=== PATIENT | male | born 1980 | race Caucasian/White ===

== ENCOUNTER 2020-03-12 09:42 | Emergency (ER) | payer SELFPAY ==
[2020-03-12 09:47] VITALS: BP 169/110; PULSE 105; RESP 18; TEMP 36.7; O2SAT 100; BMI 20.7
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
--- NOTE | 2020-03-12 10:20 | CT_ITS ---
WS: [id number] CT FACIAL BONES TECHNIQUE: Noncontrast facial bones with coronal and sagittal reformatted images. CLINICAL INFORMATION: head injury with jaw pain and right orbital swelling COMPARISON: None. DLP: 731.[address] scans at [facility] use at least one of these dose optimization techniques: automat ed exposure control; mA and/or kV adjustment per patient size (includes targeted exams where dose is matched to clinical indication); or iterative reconstruction. FINDINGS: Subcutaneous emphysema left enforcement safety officer space and parapharyngeal space. Oblique fracture involving the body of the mandible extending into the mandibular angle and mandibular ramus. No dislocation. Right mandible is normal in appearance. Paranasal sinuses are well aerated. Normal pterygoid plates. Mild mucosal thickening in the ethmoid a ir cells. BB overlying the left maxillary sinus. Orbits appear normal. Normal zygoma. CT/CT facial bones wo con* [id number] IMPRESSION: 1. Oblique nondisplaced fracture involving the left mandible described above. No dislocation. Fracture involves the left posterior molars. 2. Subcutaneous emphysema involving the left enforcement safety officer space and parapharyng eal space. 3. No other visualized fractures.
--- NOTE | 2020-03-12 10:20 | CT_ITS ---
WS: [id number] CT HEAD TECHNIQUE: Noncontrast CT of the head obtained from the skullbase to the vertex. CLINICAL INFORMATION: head injury with LOC COMPARISON: None. DLP: 848.[address] scans at [facility] use at least one of these dose optimization techniques: automat ed exposure control; mA and/or kV adjustment per patient size (includes targeted exams where dose is matched to clinical indication); or iterative reconstruction. FINDINGS: No evidence of intracranial hemorrhage or mass effect. Ventricular system and basal cisterns are murray nt. No extra-axial fluid collections. No evidence of mass or mass effect. Normal armendariz-white different iation. Paranasal sinuses and mastoid air cells are well aerated. . Subcutaneous emphysema left arts administrator or manager sp shamar. Facial bones will be described on face CT. Soft tissue edema right temporal with focal calcifica tion or debris CT/CT head wo con* [id number] IMPRESSION: 1. No evidence of intracranial hemorrhage or mass effect. 2. Subcutaneous emphysema left arts administrator or manager space. Facial bones will be describe d on face CT.
--- NOTE | 2020-03-12 10:20 | CT_ITS ---
WS: [id number] CT CERVICAL TRAUMA TECHNIQUE: Noncontrast CT of the cervical spine with coronal and sagittal reformatted images. CLINICAL INFORMATION: head injury with LOC COMPARISON: None. DLP: 534.[address] scans at [facility] use at least one of these dose optimization techniques: automat ed exposure control; mA and/or kV adjustment per patient size (includes targeted exams where dose is matched to clinical indication); or iterative reconstruction. FINDINGS: Straightening of the normal cervical lordosis. Normal craniocervical junction. Normal C1-C2 articulat ion. Dens is normal in appearance. Normal occipital condyles. No high-grade spinal canal narrowing. N ormal C1 ring. No evidence of acute fracture or dislocation. Mild spondylitic changes. Subcutaneous emphysema left neck described on the head and face CT. Partially visualized left mandibu lar fracture. Mastoids air cells are well aerated. Notified IZA Carroll at 03/12/2020 11:[address]/CT cervical spin wo con* [id number] IMPRESSION: No evidence of acute fracture or dislocation. Normal cervical spine.
[2020-03-12] MEDS: HYDROcodone-acetaminophen 7.5-325 mg Tablet 1 TAB PO (10:27)
[2020-03-12] MEDS: tetanus-dipt-pertussis 0.5 mL SDV IM (11:26)
[2020-03-12] MEDS: clindamycin 150 mg Capsule 300 MG PO (12:33)
== END 2020-03-12 12:36 | disposition home or self-care (01) ==
PROVIDERS: Emergency Provider Physician Assistant
DX: S02.642A Fracture of ramus of left mandible, initial encounter for closed fracture (principal); Z23 Encounter for immunization; Y04.2XXA Assault by strike against or bumped into by another person, initial encounter
CPT/HCPCS: 12345; 70450; 70486; 72125; 90471; 90715; 99282; 99283

== ENCOUNTER 2020-03-13 16:03 | Emergency (ER) | payer SELFPAY ==
[2020-03-13 16:08] VITALS: BP 153/108; PULSE 125; RESP 14; TEMP 37.4; O2SAT 97; BMI 20.7
--- NOTE | 2020-03-13 16:14 | W.ED.GENADLT ---
HPI - General Adult General: Chief complaint: General Medical Stated complaint: JAW INJURY/OUT OF PAIN MEDS Time Seen by Provider: 03/13/20 16:12 History of Present Illness: HPI narrative: Patient presents here requesting more pain medicine. He is gone through to 12 tablets in the last and 24-hour. Has appointment scheduled tomorrow with ENT in [place] complaint: Pain med refill Onset (ago): day(s) Severity: moderate Quality: aching Pain Consistency: constant Associated symptoms: Deny chest pain, dyspnea, headache(s), nausea, rash or vomiting Review of Systems Const: Denies: fever(s), chills or body aches Eyes: Denies: change in vision or blurry vision ENMT: Denies: throat pain or nasal congestion Card: Denies: chest pain or dyspnea on exertion Resp: Denies: dyspnea, productive cough or non-productive cough GI: Denies: abdominal pain, nausea or vomiting : Denies: difficulty urinating Musc: Denies: extremity pain Skin/Breast: Denies: rash Neuro: Denies: headache(s) Psych: Reports: other (Patient is agitated and requesting more pain meds); Denies: anxiety or depression [place]/Lymph: Denies: easy bruising Physical Exam Narrative: EXAM NARRATIVE: Patient left before I could do a proper exam. He was agitated about the questioning that I was doing concerning his use of pain medication. Patient is talking without any difficulty does have swelling to left side of his jaw moves all extremities without problem Course Vital Signs: Vital signs: Vital Signs Temperature 99.3 F 03/13/20 16:08 Pulse Rate 125 H 03/13/20 16:08 Respiratory Rate 14 03/13/20 16:08 Blood Pressure 153/108 03/13/20 16:08 Pulse Oximetry 97 03/13/20 16:08 MDM - General Adult MDM Narrative: Medical decision making narrative: I was questioned patient about his pain medication usage and the prescription did receive from here from the ER patient become agitated. Said he is having take 2 pills at a time to even relieve the pain and that he is ran out of pain medication. Offered to give the patient more pain medication and that he would need to use those appropriately he became mad about that statement and ripped off his blood pressure cuff his armband and walked out of the room Discharge Plan Discharge Patient Disposition: Home Clinical Impression: Mandible fracture Qualifiers: Encounter type: subsequent encounter Fracture type: closed Laterality: left Condition: Stable Prescriptions: No Action ibuprofen 200 mg Tablet 800 mg PO PRN RF: 0 doxycycline hyclate 100 mg capsule 100 mg PO BID 7 Days Qty: 14 RF: 0 Discharge Orders: Discharge Order (Routine); Ordered 03/13/20 Ordered By: Adrian Graham Discharge Diet: Usual diet Discharge Activity: Limit activity as instructed Activity Restrictions/Additional Instructions: Keep appointment with ear nose throat doctor tomorrow. Can take ibuprofen or Tylenol for pain. Apply ice as needed. Coding Level of Care Code ED Long Term Care Phlebotomist for Elaina Summers
--- NOTE | 2020-03-13 16:33 | PC.NURSE ---
Went to Room 08 to assess and update vitals and pt was Gone. Was not able to assess or complete assessment.
== END 2020-03-13 16:36 | disposition home or self-care (01) ==
PROVIDERS: Emergency Provider Nurse Practitioner Family
DX: S02.609A Fracture of mandible, unspecified, initial encounter for closed fracture (principal); X58.XXXA Exposure to other specified factors, initial encounter
CPT/HCPCS: 12345; 99281

== ENCOUNTER 2020-03-13 23:48 | Emergency (ER) | payer SELFPAY ==
[2020-03-13 23:59] VITALS: BP 163/102; PULSE 111; RESP 16; TEMP 36.7; O2SAT 98; BMI 21.4
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
[2020-03-14 00:12] VITALS: BP 142/92; PULSE 110; RESP 20; O2SAT 99
[2020-03-14] MEDS: HYDROcodone-acetaminophen 10-325 mg Tablet 2 TAB PO (00:36)
[2020-03-14] MEDS: HYDROcodone-acetaminophen 10-325 mg Tablet 1 TAB PO (00:36)
== END 2020-03-14 00:37 | disposition home or self-care (01) ==
PROVIDERS: Emergency Provider Nurse Practitioner Family
DX: S02.609A Fracture of mandible, unspecified, initial encounter for closed fracture (principal); X58.XXXA Exposure to other specified factors, initial encounter
CPT/HCPCS: 12345; 99282

== ENCOUNTER 2020-05-09 00:07 | Emergency (ER) | payer SELFPAY ==
[2020-05-09 00:12] VITALS: BP 148/113; PULSE 132; RESP 18; TEMP 37.1; O2SAT 96
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
--- NOTE | 2020-05-09 01:40 | PC.NURSE ---
during initial assessment, pt refusing all care including IV meds and CT scan. Pt states he has an appt next week with his ENT surgeon in [place], and feels his care can wait until then. Dr notified. Dr states pt still refusing care and willing to leave AMA. Pt explained risk and benefits of AMA refusal risking injury leading up to permanent disability or . Pt signed AMA paperwork after verbalizing understanding
== END 2020-05-09 02:14 | disposition left against medical advice (07) ==
PROVIDERS: Emergency Provider Emergency Medicine
DX: K04.7 Periapical abscess without sinus (principal); Z53.21 Procedure and treatment not carried out due to patient leaving prior to being seen by health care provider
CPT/HCPCS: 12345; 99281

== ENCOUNTER 2020-10-26 02:13 | Emergency (ER) | payer SELFPAY ==
[2020-10-26] VITALS (8 sets, daily range): BP systolic 103–164; BP diastolic 66–101; PULSE 110–140; RESP 16–24; TEMP 37.3–38.1; O2SAT 94–98; BMI 22.6
[2020-10-26] MEDS: sodium chloride 0.9% 1,000 ML 999 ML IV (02:39)
[2020-10-26 02:55] LABS: Basophils # 0.1 10^3/uL (0.0-0.1); Basophils % 0.5 %; Eosinophils # 0.4 10^3/uL (0.0-0.8); Eosinophils % 1.5 %; Hematocrit 40.6 % (42.0-52.0); Hemoglobin 13.5 g/dL (11.7-16.6); Lymphocytes # 1.7 10^3/uL (0.8-4.8); Lymphocytes % 6.5 %; Mean Corpuscular HGB Conc 33.3 g/dL (30.0-36.0); Mean Corpuscular Hemoglobin 30.2 pg (28.0-34.0); Mean Corpuscular Volume 90.8 fL (80-94); Mean Platelet Volume 9.6 fL (7.4-10.4); Monocytes # 2.7 10^3/uL (0.2-0.9); Monocytes % 10.3 %; Neutrophils # 20.79 10^3/uL (1.8-7.7); Nucleated Red Blood Cells % 0 %; Platelet Count 301 10^3/cmm (130-400); Red Blood Count 4.47 10^6/uL (4.1-5.3); Red Cell Distribution Width 14.7 % (12.1-15.1)
--- NOTE | 2020-10-26 03:04 | CTR_ITS ---
PROCEDURE INFORMATION: Exam: CT Neck With Contrast Exam date and time: 10/26/2020 3:21 AM Age: 40 years old Clinical indication: Abscess, cutaneous; Prior surgery; Surgery date: 3-7 days post-operative; Surgery type: Left mandible hardware removed; Patient HX: Abscess formation from removal of mandibular hardware five days ago. TECHNIQUE: Imaging protocol: Computed tomography images of the neck with intravenous contrast. Radiation optimization: All CT scans at this facility use at least one of these dose optimization techniques: automated exposure control; mA and/or kV adjustment per patient size (includes targeted exams where dose is matched to clinical indication); or iterative reconstruction. Contrast material: OMNI 300; Contrast volume: 95 ml; Contrast route: INTRAVENOUS (IV); COMPARISON: CT cervical spin wo con* [id number] 03/12/2020 10:37 AM RADIATION DOSE METRICS: Total DLP (mGy-cm): 602.74 FINDINGS: Nasopharynx: Unremarkable. Oropharynx: Unremarkable. No significant tonsillar enlargement. Hypopharynx: Unremarkable. Larynx: Unremarkable. Normal epiglottis. Retropharyngeal space: Unremarkable. Submandibular/Parotid glands: Normal. Glands are normal in size. Thyroid: Normal. No enlarged or calcified nodules. Lymph nodes: There is a 1.7 cm left upper cervical chain lymph node. There is a 1.7 cm left submandibular lymph node. There is a 1.2 cm submental lymph node. Trachea: Visualized trachea is unremarkable. Lungs: Single calcified pulmonary granuloma is present, consistent with prior granulomatous disease. Bones/joints: Old right zygoma fracture. There is fracture fixation hardware in the left mandible. No bone destruction. Vasculature: There is diffuse left facial cellulitis. Soft tissues: There is a 5 x 4.3 x 6 cm left facial abscess which is extending to the skin surface. There is a rounded metallic foreign body in the soft tissues anterior to the left maxillary sinus. CT/CT neck w con* [id number] IMPRESSION: 1. There is a 5 x 4.3 x 6 cm left facial abscess which is extending to the skin surface. 2. Left facial cellulitis. 3. Mildly enlarged upper cervical, submandibular and submental lymph nodes. Radiation Dose CTDIVOL = (mGy): DLP = 602.74 (mGy-cm)
[2020-10-26 03:09] LABS: Alanine Aminotransferase 12 U/L (0-41); Albumin Level 4.1 g/dL (3.5-5.2); Alkaline Phosphatase 126 IU/L (40-130); Aspartate Amino Transferase 12 U/L (0-40); Blood Urea Nitrogen 6 mg/dL (6-20); Calcium 8.9 mg/dL (8.5-10.5); Carbon Dioxide 27 mmol/L (22-29); Chloride 98 mmol/L (98-107); Creatinine Clr Calc Pharmacy 137.8536; Globulin 3.7 g/dL (1.3-4.6); Glomerular Filtration Rate 124.3 mL/min (90-130); Glucose 150 mg/dL (65-115); Osmolality Calculated 282 mOsm/kg (285-295); Sodium 136 mmol/L (136-145); Total Bilirubin 0.8 mg/dL (0.15-1.2); Total Protein 7.8 g/dL (6.6-8.7)
[2020-10-26 03:10] LABS: Lactate (Lactic Acid level) 1.1 mmol/L (0.5-2.2)
[2020-10-26] MEDS: iohexol 300 mg/mL 100 mL Btl IV (03:22)
[2020-10-26 03:23] LABS: C Reactive Protein 350.4 mg/L (0.0-4.9)
[2020-10-26] MEDS: ondansetron 2 mg/ML SDV 2 mL 4 MG IVP (03:25)
[2020-10-26] MEDS: lidocaine 1% INJ 20 mL INJECTION (03:25)
[2020-10-26] MEDS: fentaNYL 50 mcg/mL INJ 2mL 75 MCG IVP (03:25)
--- NOTE | 2020-10-26 03:59 | ED_ITS ---
HPI - General Adult General: Chief complaint: General Medical Stated complaint: POSS INFECTION POST OP Time Seen by Provider: 10/26/20 02:27 History of Present Illness: HPI narrative: 40-year-old male who had a mandibular plate removed on the left on Wednesday, 5 days ago. He presents with left-sided facial swelling, fever, chills. He noted that he had increasing swelling over the last 2 to 3 days. He can talk to his surgeon's office yesterday, and was called in some antibiotics after they found out he could not make it to [place] in time for the office to close. He woke up with increased swelling and pain early this morning. He is handling liquids and swallowing okay, but notes that it is hard to open his mouth to eat. He is handling his own secretions. Onset (ago): day(s) Location: face and neck Radiation: non-radiation Severity: moderate Severity scale (1-10): 8 Quality: burning and aching Pain Consistency: constant Relieving factors: none Exacerbating factors: movement Associated symptoms: Reports fevers/chills, headache(s), nausea and rash; Deny chest pain, confusion, dyspnea or vomiting Treatments prior to arrival: other Review of Systems Const: Reports: fever(s), chills and change in appetite Eyes: Denies: change in vision Card: Denies: chest pain Resp: Denies: dyspnea, productive cough or non-productive cough GI: Reports: nausea; Denies: vomiting : Denies: difficulty urinating Skin/Breast: Reports: rash Neuro: Reports: headache(s); Denies: dizziness or confusion [facility] ED PFSH: Medical History (Updated 10/26/20 @ 05:38 by Geovany Castillo DO) No pertinent past medical history Surgical History (Updated 05/09/20 @ 00:22 by Jennifer Leyva) History of mandibular surgery Physical Exam Const: COMMON NORMALS: patient oriented x3 GENERAL APPEARANCE: ill appearing and diaphoretic ORIENTATION/CONSCIOUSNESS: Yes awake, Yes oriented to person, Yes oriented to place and Yes oriented to time HENMT: FACE & SINUS: edema, fluctuance and other OTHER: Left-sided facial and neck edema perimandibular. Incision appears still closed with sutures int act. It is mild to moderately cellulitic. There is no streaking. Small amount of drainage from the incision site. It appears purulent and has a somewhat pungent odor. Chest: COMMONS NORMALS: normal inspection of the chest Resp: COMMON NORMALS: normal respiratory effort, No retractions and No use of accessory muscles Cardio: COMMON NORMALS: regular rhythm RATE: tachycardic RHYTHM: regular rhythm GI: INSPECTION: Yes normal to inspection Neuro: COMMON NORMALS: patient oriented x3 SENSORIUM/ORIENTATION: Yes oriented to person, Yes oriented to place and Yes oriented to time Procedures Abscess I/D Site: neck Side (if applicable): left Sedation/analgesia: fentanyl Local Anesthetic: lidocaine 1% Amount of anesthesia used (mL): 6 Technique: incised with #11 blade Amount of fluid expressed (mL): 150 Irrigation: No Packing used?: none Course Consultations: Consultation #1: Yael Hospitalist, [facility]. Accepts in Transfer Time: 05:37 Vital Signs: Vital signs: Vital Signs Temperature 99.6 F 10/26/20 04:30 Pulse Rate 125 H 10/26/20 04:26 Respiratory Rate 21 H 10/26/20 04:26 Blood Pressure 138/93 10/26/20 04:26 Pulse Oximetry 94 10/26/20 04:26 MDM - General Adult MDM Narrative: Medical decision making narrative: 40-year-old male presents with fever and facial swelling. He has had some drainage. He notes after the drainage started, his pain improved to some degree. His white blood cell count is 26. He is tachycardic. He qualifies for sepsis. He is however hypertensive and not hypotensive, so traditional 30 mL/kilogram bolus not incorporated. He did receive some fluid. Large area of fluctuance, small incision made with copious amounts of pungent, purulent material drained. CT was acquired before I&D, and shows a large abscess with air down next to his mandible. His surgery was done at [facility], and we will attempt to get a hold of them for transfer. Lab Data: Labs: Lab Results 10/26/20 10/26/20 10/26/20 Range/Units 02:45 02:45 02:45 WBC 26.0 H (4.0-10.0) 10^3/ uL RBC 4.47 (4.1-5.3) 10^6/u L Hgb 13.5 (11.7-16.6) g/dL Hct 40.6 L (42.0-52.0) % MCV 90.8 (80-94) fL MCH 30.2 (28.0-34.0) pg MCHC 33.3 (30.0-36.0) g/dL RDW 14.7 (12.1-15.1) % Plt Count 301 (130-400) 10^3/c mm MPV 9.6 (7.4-10.4) fL Neut % (Auto) 80.0 % Lymph % (Auto) 6.5 % [place] % (Auto) 10.3 % Eos % (Auto) 1.5 % Baso % (Auto) 0.5 % Neut # (Auto) 20.79 H (1.8-7.7) 10^3/u L Lymph # (Auto) 1.7 (0.8-4.8) 10^3/u L [place] # (Auto) 2.7 H (0.2-0.9) 10^3/u L Eos # (Auto) 0.4 (0.0-0.8) 10^3/u L Baso # (Auto) 0.1 (0.0-0.1) 10^3/u L Nucleated RBC % (a uto) 0 % Nucleated RBCs # 0.0 /100WBC Sodium 136 (136-145) mmol/L Potassium 4.0 (3.5-5.1) mmol/L Chloride 98 (98-107) mmol/L Carbon Dioxide 27 (22-29) mmol/L Anion Gap 15.0 (5-19) BUN 6 (6-20) mg/dL Creatinine 0.7 (0.7-1.2) mg/dL GFR Calculation 124.3 (90-130) mL/min Glucose 150 H (65-115) mg/dL Calculated Osmolal ity 282 L (285-295) mOsm/k g Lactate 1.1 (0.5-2.2) mmol/L Calcium 8.9 (8.5-10.5) mg/dL Total Bilirubin 0.8 (0.15-1.2) mg/dL AST 12 (0-40) U/L ALT 12 (0-41) U/L Alkaline Phosphata se 126 (40-130) IU/L C-Reactive Protein 350.4 H (0.0-4.9) mg/L Total Protein 7.8 (6.6-8.7) g/dL Albumin 4.1 (3.5-5.2) g/dL Globulin 3.7 (1.3-4.6) g/dL Urine Color (Yellow) Urine Appearance (CLEAR) Urine pH (5-7) Ur Specific Gravit y (1.005-1.030) Urine Protein (Negative) Urine Glucose (UA) (Normal) Urine Ketones (Negative) Urine Blood (Negative) Urine Nitrate (Negative) Urine Bilirubin (Negative) Prot Sulfosalicyli c Acd (Negative) Urine Urobilinogen (Negative) mg/dL Ur Leukocyte Lizzette ase (Negative) 10/26/20 Range/Units 03:15 WBC (4.0-10.0) 10^3/ uL RBC (4.1-5.3) 10^6/u L Hgb (11.7-16.6) g/dL Hct (42.0-52.0) % MCV (80-94) fL MCH (28.0-34.0) pg MCHC (30.0-36.0) g/dL RDW (12.1-15.1) % Plt Count (130-400) 10^3/c mm MPV (7.4-10.4) fL Neut % (Auto) % Lymph % (Auto) % [place] % (Auto) % Eos % (Auto) % Baso % (Auto) % Neut # (Auto) (1.8-7.7) 10^3/u L Lymph # (Auto) (0.8-4.8) 10^3/u L [place] # (Auto) (0.2-0.9) 10^3/u L Eos # (Auto) (0.0-0.8) 10^3/u L Baso # (Auto) (0.0-0.1) 10^3/u L Nucleated RBC % (a uto) % Nucleated RBCs # /100WBC Sodium (136-145) mmol/L Potassium (3.5-5.1) mmol/L Chloride (98-107) mmol/L Carbon Dioxide (22-29) mmol/L Anion Gap (5-19) BUN (6-20) mg/dL Creatinine (0.7-1.2) mg/dL GFR Calculation (90-130) mL/min Glucose (65-115) mg/dL Calculated Osmolal ity (285-295) mOsm/k g Lactate (0.5-2.2) mmol/L Calcium (8.5-10.5) mg/dL Total Bilirubin (0.15-1.2) mg/dL AST (0-40) U/L ALT (0-41) U/L Alkaline Phosphata se (40-130) IU/L C-Reactive Protein (0.0-4.9) mg/L Total Protein (6.6-8.7) g/dL Albumin (3.5-5.2) g/dL Globulin (1.3-4.6) g/dL Urine Color Yellow (Yellow) Urine Appearance Clear (CLEAR) Urine pH 8 H (5-7) Ur Specific Gravit y 1.010 (1.005-1.030) Urine Protein Neg (Negative) Urine Glucose (UA) Norm (Normal) Urine Ketones Negative (Negative) Urine Blood Neg (Negative) Urine Nitrate Negative (Negative) Urine Bilirubin Neg (Negative) Prot Sulfosalicyli c Acd Negative (Negative) Urine Urobilinogen 1 H (Negative) mg/dL Ur Leukocyte Lizzette ase Negative (Negative) Discharge Plan Discharge Patient Disposition: Xfer Short-Term Hosp Clinical Impression: Abscess after procedure Sepsis Qualifiers: Sepsis type: sepsis due to unspecified organism Sepsis acute organ dysfunction status: without acute organ dysfunction Qualified Code(s): A41.9 - Sepsis, unspecified organism Coding Level of Care Code 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
[2020-10-26] MEDS: ketorolac 30 mg/mL INJ IVP (04:06)
[2020-10-26 04:14] LABS: Add Urine Microscopic? NO
[2020-10-26] MEDS: clindamycin 900 MG/50 ML PREMIX 100 MG IV (04:15)
[2020-10-26 04:24] LABS: Bilirubin Urine Neg (Negative); Blood Urine Neg (Negative); Glucose Urine UA Norm (Normal); Ketones Urine Negative (Negative); Leukocyte Esterase Urine Negative (Negative); Nitrate Urine Negative (Negative); Protein Urine Neg (Negative); Sulfosalicylic Acid Urine Negative (Negative); Urine Appearance Clear (CLEAR); Urine Color Yellow (Yellow); Urobilinogen Urine 1 mg/dL (Negative); pH Urine 8 (5-7)
[2020-10-26] MEDS: sodium chloride 0.9% 1,000 ML 100 ML IV (06:26)
[2020-10-26] MEDS: dexamethasone 4 mg/mL INJ 8 MG IVP (06:26)
--- NOTE | 2020-10-28 13:39 | PC.NURSE ---
Wound culture faxed to [facility] where the patient was transferred to after patients visit here in the ER.
== END 2020-10-26 06:55 | disposition short-term general hospital (02) ==
PROVIDERS: Emergency Provider Emergency Medicine
DX: T81.49XA Infection following a procedure, other surgical site, initial encounter (principal); L02.11 Cutaneous abscess of neck; A41.9 Sepsis, unspecified organism
CPT/HCPCS: 10060; 70491; 80053; 81003; 83605; 85025; 86140; 87040; 87070; 87075; 87186; 87205; 96365; 96375; 99285; J1100; J1885; J2405; J3010; J3490; J7030; Q9967

== ENCOUNTER 2021-02-13 03:44 | Emergency (ER) | payer SELFPAY ==
[2021-02-13 03:49] VITALS: BP 163/113; PULSE 117; RESP 17; TEMP 36.6; O2SAT 97; BMI 20.7
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
[2021-02-13 04:14] VITALS: RESP 17; O2SAT 97
[2021-02-13] MEDS: morphine 4 mg/mL SDV 1 mL IVP (04:14)
[2021-02-13] MEDS: ondansetron 2 mg/ML SDV 2 mL 4 MG IVP ×2 (04:14→05:06)
[2021-02-13 04:17] LABS: Basophils # 0.1 10^3/uL (0.0-0.1); Basophils % 0.3 %; Hemoglobin 13.6 g/dL (11.7-16.6); Lymphocytes # 0.8 10^3/uL (0.8-4.8); Lymphocytes % 4.1 %; Mean Corpuscular HGB Conc 32.4 g/dL (30.0-36.0); Mean Corpuscular Hemoglobin 29.3 pg (28.0-34.0); Mean Corpuscular Volume 90.5 fL (80-94); Mean Platelet Volume 9.4 fL (7.4-10.4); Monocytes # 1.1 10^3/uL (0.2-0.9); Monocytes % 5.6 %; Neutrophils # 17.37 10^3/uL (1.8-7.7); Neutrophils % 89.3 %; Nucleated Red Blood Cells % 0 %; Platelet Count 255 10^3/cmm (130-400); Red Blood Count 4.64 10^6/uL (4.1-5.3); Red Cell Distribution Width 14.4 % (12.1-15.1); White Blood Count 19.4 10^3/uL (4.0-10.0)
[2021-02-13 04:25] VITALS: PULSE 123; O2SAT 97
[2021-02-13] MEDS: iohexol 300 mg/mL 100 mL Btl IV (04:26)
[2021-02-13 04:33] LABS: Alanine Aminotransferase 37 U/L (0-41); Albumin Level 4.6 g/dL (3.5-5.2); Alkaline Phosphatase 127 IU/L (40-130); Anion Gap 17.5 (5-19); Aspartate Amino Transferase 59 U/L (0-40); Blood Urea Nitrogen 12 mg/dL (6-20); Carbon Dioxide 23 mmol/L (22-29); Chloride 99 mmol/L (98-107); Globulin 2.6 g/dL (1.3-4.6); Glomerular Filtration Rate 73.8 mL/min (90-130); Glucose 190 mg/dL (65-115); Osmolality Calculated 287 mOsm/kg (285-295); Potassium 3.5 mmol/L (3.5-5.1); Sodium 136 mmol/L (136-145); Total Protein 7.2 g/dL (6.6-8.7)
[2021-02-13 04:40] LABS: Alcohol Level < 10 mg/dL (0-10)
--- NOTE | 2021-02-13 04:45 | PC.NURSE ---
patient refused to wear C-Collar upon arrival to ER due to pain. After CT was viewed by Dr. Griffin, patient was advised of results and staff insisted on patient wearing c-collar. Patient reluctant but agreeable to wear c-collar. C-collar was placed
[2021-02-13 05:00] VITALS: BP 162/110; PULSE 124; RESP 17; O2SAT 97
[2021-02-13 05:12] VITALS: RESP 18; O2SAT 100
[2021-02-13] MEDS: HYDROmorphone 1 mg/mL INJ 1 mL IVP (05:12)
[2021-02-13 05:13] VITALS: BP 162/110; PULSE 124; RESP 17; TEMP 36.6; O2SAT 97
[2021-02-13 05:14] LABS: Amphetamines Screen Urine Positive (Negative); Barbiturates Screen Urine Negative (Negative); Benzodiazepines Screen Urine Negative (Negative); Cocaine Screen Urine Negative (Negative); Opiate Screen Urine Positive (Negative); PCP Screen Urine Negative (Negative); THC Screen Urine Positive (Negative)
[2021-02-13] MEDS: LORazepam 2 mg/mL INJ 1 mL 1 MG IVP (05:15)
== END 2021-02-13 05:42 | disposition short-term general hospital (02) ==
PROVIDERS: Emergency Provider Emergency Medicine
DX: S32.022A Unstable burst fracture of second lumbar vertebra, initial encounter for closed fracture (principal); S12.601A Unspecified nondisplaced fracture of seventh cervical vertebra, initial encounter for closed fracture; W14.XXXA Fall from tree, initial encounter
CPT/HCPCS: 51702; 70450; 71260; 72125; 74177; 80053; 80306; 80307; 85025; 96374; 96375; 96376; 99285; J1170; J2060; J2270; J2405; Q9967

== ENCOUNTER 2021-09-03 09:17 | Emergency (ER) | payer SELFPAY ==
[2021-09-03 09:23] VITALS: BP 157/112; PULSE 122; RESP 19; TEMP 36.5; O2SAT 98; BMI 21.4
--- NOTE | 2021-09-03 09:34 | ED_ITS ---
HPI - General Adult General: Chief complaint: General Medical Stated complaint: SOMETHING IN HIS NOSE Time Seen by Provider: 09/03/21 09:20 Source: patient Mode of arrival: ambulatory Limitations: no limitations History of Present Illness: Patient is a 41-year-old male who presents to ED today for evaluation of a possible nasal foreign body (patient thinks specifically a bug). He states he woke up this morning and felt normal but states later that morning he began sneezing and having a runny nose which was abnormal for patient. He thought he could feel something in his left nare and felt like it could be a bug. Patient states upon arrival to the ED his symptoms have pretty much resolved but still has some minor rhinorrhea. He is not having any difficulty breathing. No nosebleed. No throat swelling or trouble swallowing. Onset (ago): hour(s) Location: face (nose) Severity: mild Pain Consistency: now resolved Associated symptoms: Reports no associated symptoms; Deny chest pain, dyspnea, headache(s), malaise, nausea or vomiting Treatments prior to arrival: none Review of Systems Const: Denies: fever(s), chills, body aches, fatigue or malaise Eyes: Denies: change in vision, blurry vision, photophobia, floaters or seeing flashes ENMT: Reports: nasal discharge and post nasal drip; Denies: throat pain, odynophagia, ear or mastoid pain, nasal congestion, nasal obstruction, epistaxis or sinus pain Card: Denies: chest pain Resp: Denies: dyspnea GI: Denies: abdominal pain, nausea or vomiting Musc: Denies: neck pain Neuro: Denies: headache(s) or dizziness [facility] ED PFSH: Medical History No pertinent past medical history Surgical History History of mandibular surgery Social History Smoking and tobacco status: current every day smoker Physical Exam Const: COMMON NORMALS: no acute distress, patient oriented x3, no limitations and alert HENMT: COMMON NORMALS: normocephalic, atraumatic, hearing grossly normal bilaterally, external ears normal, EAC's normal, TM's normal bilaterally, Normal external nose present, Normal nasal mucous membranes and turbinates present, moist oral mucous membranes, oropharynx normal and gingiva normal HEAD & SCALP: normal to inspection, normocephalic and atraumatic FACE & SINUS: normal facial exam NOSE: Normal external nose present, Normal nares present, Normal nasal mucous membranes and turbinates present, Normal septum present and Other nasal findings present (mild clear rhinorrhea) EXTERNAL EAR: Yes external ears normal EXTERNAL AUDITORY CANAL: EAC's normal TYMPANIC MEMBRANE: TM's normal bilaterally MOUTH: Normal oral and palatal mucosa present, lip normal and tongue normal TEETH & GINGIVA: Yes poor dentition THROAT: posterior oropharynx normal, tonsils normal and uvula midline Eye: GENERAL EYE: appearance normal, both eyes and all related structures Neck/C-Spine: COMMON NORMALS: full ROM and no lymphadenopathy GENERAL: No anterior neck swelling, No lymphadenopathy and No submandibular swelling Neuro: COMMON NORMALS: patient oriented x3 SENSORIUM/ORIENTATION: Yes alert Course Vital Signs: Vital signs: Vital Signs Temperature 97.7 F 09/03/21 09:23 Pulse Rate 115 H 09/03/21 09:46 Respiratory Rate 20 H 09/03/21 09:46 Blood Pressure 155/102 09/03/21 09:46 Pulse Oximetry 98 09/03/21 09:46 [facility] - General Adult Medical Decision Making Patient states symptoms are gone apart from some mild clear rhinorrhea. Unlikely patient would wake up from sleep normal and then have a bug crawl/fly into his nose when he is up/alert/active without him knowing so. I don't see anything abnormal regarding his nares or posterior oropharynx. Recommend he continue to monitor symptoms. If discomfort returns or if he begins to have increased odorous nasal secretions then he was recommended to return here or follow up with PCP for possible referral to ENT. Discharge Plan Discharge Patient Disposition: Home Clinical Impression: Normal exam Condition: Stable Prescriptions: No Action hydrocodone-acetaminophen 5-325 mg tablet 1 tab PO Q6H PRN0RF gabapentin 100 mg capsule 100 mg PO BID 0RF muscle relaxer PO 0RF Discharge Orders: Discharge ED (Routine); Ordered 09/03/21 Ordered By: Silvia Seaman Coding Level of Care Code ED Fine Arts Teacher for Chg Kristopher
[2021-09-03 09:39] VITALS: BP 155/102; PULSE 115; RESP 20; O2SAT 98
[2021-09-03 09:46] VITALS: BP 155/102; PULSE 115; RESP 20; O2SAT 98
== END 2021-09-03 09:50 | disposition home or self-care (01) ==
PROVIDERS: Emergency Provider Physician Assistant
DX: Z03.89 Encounter for observation for other suspected diseases and conditions ruled out (principal); F17.210 Nicotine dependence, cigarettes, uncomplicated; X58.XXXA Exposure to other specified factors, initial encounter
CPT/HCPCS: 99282

== ENCOUNTER 2021-12-17 05:07 | Emergency (ER) | payer SELFPAY ==
[2021-12-17 05:14] VITALS: BP 156/104; PULSE 113; RESP 16; TEMP 36.9; O2SAT 98; BMI 22.1
[2021-12-17 05:17] VITALS: BP 153/111; PULSE 100; RESP 18; O2SAT 99
--- NOTE | 2021-12-17 05:21 | W.ED.ANXIETY ---
Documented by User: Sharad Stephens MD 12/23/21 03:34 HPI - Anxiety General: Chief Complaint: Anxiety Stated Complaint: Psychiatric Symptons Time Seen by Provider: 12/17/21 05:20 History of Present Illness: Mr Frederick is a 41-year-old gentleman without significant chronic medical history presents to the emergency department due to concern of anxiety and missing time. He reports for the past few months he has had episodes where he no longer remembers certain events or times. At longest these last few hours. He endorses sometimes this is when he is outside in the heat though some other times it just occurs randomly. He does not have his history of seizures and others do not seem to notice anything different about and when these happen. He does note increased stressors lately regarding work and living situation. He does endorse tobacco use and occasional marijuana use. Additionally he endorses amphetamine use. He sometimes feels paranoid and prior to coming to the emergency department paced outside for a while being unsure if it was safe. He denies suicidal or homicidal ideation. No history of hospitalizations for psychiatric concerns. Otherwise denies new medical concerns. No other specific changes in health, exacerbating, or alleviating factors identified. Severity: moderate Quality: intermittent Provoking factors: emotional stress and work/job stress Review of Systems General: Reports: 10 or more systems reviewed and unremarkable except in HPI and below PFSH ED PFSH: Medical History No pertinent past medical history Surgical History History of mandibular surgery Social History Smoking and tobacco status: current every day smoker Physical Exam Const: COMMON NORMALS: alert GENERAL APPEARANCE: cooperative and well developed HENMT: COMMON NORMALS: normocephalic and atraumatic HEAD & SCALP: normocephalic and atraumatic Eye: COMMON NORMALS: conjunctivae normal CONJUNCTIVA: Yes conjunctivae normal SCLERA: sclerae normal Neck/C-Spine: COMMON NORMALS: supple GENERAL: Yes trachea midline Resp: COMMON NORMALS: clear to auscultation bilaterally EFFORT & INSPECTION: Yes able to speak in complete sentences AUSCULTATION: clear to auscultation bilaterally Cardio: COMMON NORMALS: regular rate and regular rhythm RATE: regular rate RHYTHM: regular rhythm GI: COMMON NORMALS: Soft to palpation PALPATION: Yes Soft to palpation and No Tenderness to palpation present (GI) PERCUSSION: normal to percussion Extremity: GENERAL: Yes normal exam except as noted and No edema Neuro: COMMON NORMALS: moves all extremities SENSORIUM/ORIENTATION: Yes alert and No Orientation impaired Psych: COMMON NORMALS: mental status grossly normal and Normal thought process present THOUGHT PROCESS: Normal thought process present Course Vital Signs: Vital signs: Vital Signs Temperature 98.5 F 12/17/21 05:14 Pulse Rate 99 12/17/21 07:45 Respiratory Rate 16 12/17/21 07:45 Blood Pressure 144/95 12/17/21 07:45 Pulse Oximetry 96 12/17/21 07:45 MDM - Anxiety Medical Decision Making 41-year-old gentleman with psychiatric history presenting to the emergency department for concern over missing time. Handoff to morning physician Dr. Dong pending completion of ED evaluation and reassessment of patient condition. Care assumed at change of shift. Patient much less anxious than as described by Dr. Stephens. We will go ahead and discharge the patient home started on BuSpar 7.5 twice daily follow-up with [facility]. Also give hydroxyzine to use as needed Lab Data : 12/17/21 05:50 12/17/21 05:50 Laboratory Results WBC 7.3 10^3/uL (4.0-10.0) 12/17/21 05:50 RBC 5.66 10^6/uL (4.1-5.3) H 12/17/21 05:50 Hgb 17.0 g/dL (11.7-16.6) H 12/17/21 05:50 Hct 51.1 % (42.0-52.0) 12/17/21 05:50 MCV 90.3 fl (80-94) 12/17/21 05:50 MCH 30.0 pg (28.0-34.0) 12/17/21 05:50 MCHC 33.3 g/dL (30.0-36.0) 12/17/21 05:50 RDW 14.4 % (12.1-15.1) 12/17/21 05:50 Plt Count 354 10^3/cmm (130-400) 12/17/21 05:50 MPV 9.3 fL (7.4-10.4) 12/17/21 05:50 Neut % (Auto) 50.6 % 12/17/21 05:50 Lymph % (Auto) 29.4 % 12/17/21 05:50 Sharp % (Auto) 11.5 % 12/17/21 05:50 Eos % (Auto) 7.4 % 12/17/21 05:50 Baso % (Auto) 0.8 % 12/17/21 05:50 Neut # (Auto) 3.70 10^3/uL (1.8-7.7) 12/17/21 05:50 Lymph # (Auto) 2.2 10^3/uL (0.8-4.8) 12/17/21 05:50 Sharp # (Auto) 0.8 10^3/uL (0.2-0.9) 12/17/21 05:50 Eos # (Auto) 0.5 10^3/uL (0.0-0.8) 12/17/21 05:50 Baso # (Auto) 0.1 10^3/uL (0.0-0.1) 12/17/21 05:50 Nucleated RBC % (auto) 0 % 12/17/21 05:50 Nucleated RBCs # 0.0 /100WBC 12/17/21 05:50 Sodium 139 mmol/L (136-145) 12/17/21 05:50 Potassium 3.6 mmol/L (3.5-5.1) 12/17/21 05:50 Chloride 99 mmol/L (98-107) 12/17/21 05:50 Carbon Dioxide 26 mmol/L (22-29) 12/17/21 05:50 Anion Gap 17.6 (5-19) 12/17/21 05:50 BUN 11 mg/dL (6-20) 12/17/21 05:50 Creatinine 0.8 mg/dL (0.7-1.2) 12/17/21 05:50 GFR Calculation 106.0 mL/min (90-130) 12/17/21 05:50 Glucose 103 mg/dL (65-115) 12/17/21 05:50 Calculated Osmolality 288 mOsm/kg (285-295) 12/17/21 05:50 Calcium 9.4 mg/dL (8.5-10.5) 12/17/21 05:50 Creatine Kinase 87 U/L (39-308) 12/17/21 05:50 Discharge Plan Discharge Patient Disposition: Home Clinical Impression: Acute anxiety Condition: Stable Prescriptions: New buspirone 15 mg tablet 7.5 mg PO BID Qty: 30 0RF hydroxyzine HCl 25 mg tablet 25 mg PO Q6H PRN (Reason: anxiety) Qty: 10 0RF No Action hydrocodone-acetaminophen 5-325 mg tablet 1 tab PO Q6H PRN0RF gabapentin 100 mg capsule 100 mg PO BID 0RF muscle relaxer PO 0RF Discharge Orders: Discharge ED (Routine); Ordered 12/17/21 Ordered By: Marty Dong Discharge Diet: Usual diet Discharge Activity: Resume usual activity Patient Instructions: Opioid Safety Activity Restrictions/Additional Instructions: Follow-up with [facility] for long-term management of your anxiety issues. Sign Out Sign Out Data: Patient Sign Out occurred on 12/17/21 at 06:56. Patient's care was discussed, and care was transferred from to Marty Dong DO. Coding Level of Care Code ED Certified Nuclear Medicine Technologist for Chg Fwd Documented by User: Marty Dong DO 12/17/21 07:51 HPI - Anxiety General: Chief Complaint: Anxiety Stated Complaint: Psychiatric Symptons Time Seen by Provider: 12/17/21 05:20 REPLACED BY [facility] ED PFSH: Medical History No pertinent past medical history Surgical History History of mandibular surgery Social History Smoking and tobacco status: current every day smoker Course Vital Signs: Vital signs: Vital Signs Temperature 98.5 F 12/17/21 05:14 Pulse Rate 99 12/17/21 07:45 Respiratory Rate 16 12/17/21 07:45 Blood Pressure 144/95 12/17/21 07:45 Pulse Oximetry 96 12/17/21 07:45 MDM - Anxiety Medical Decision Making Care assumed at change of shift. Patient much less anxious than as described by Dr. Stephens. We will go ahead and discharge the patient home started on BuSpar 7.5 twice daily follow-up with [facility]. Also give hydroxyzine to use as needed Medical Records I reviewed the patient's medical records. Lab Data I reviewed the patient's lab results. : 12/17/21 05:50 12/17/21 05:50 Laboratory Results WBC 7.3 10^3/uL (4.0-10.0) 12/17/21 05:50 RBC 5.66 10^6/uL (4.1-5.3) H 12/17/21 05:50 Hgb 17.0 g/dL (11.7-16.6) H 12/17/21 05:50 Hct 51.1 % (42.0-52.0) 12/17/21 05:50 MCV 90.3 fl (80-94) 12/17/21 05:50 MCH 30.0 pg (28.0-34.0) 12/17/21 05:50 MCHC 33.3 g/dL (30.0-36.0) 12/17/21 05:50 RDW 14.4 % (12.1-15.1) 12/17/21 05:50 Plt Count 354 10^3/cmm (130-400) 12/17/21 05:50 MPV 9.3 fL (7.4-10.4) 12/17/21 05:50 Neut % (Auto) 50.6 % 12/17/21 05:50 Lymph % (Auto) 29.4 % 12/17/21 05:50 Sharp % (Auto) 11.5 % 12/17/21 05:50 Eos % (Auto) 7.4 % 12/17/21 05:50 Baso % (Auto) 0.8 % 12/17/21 05:50 Neut # (Auto) 3.70 10^3/uL (1.8-7.7) 12/17/21 05:50 Lymph # (Auto) 2.2 10^3/uL (0.8-4.8) 12/17/21 05:50 Sharp # (Auto) 0.8 10^3/uL (0.2-0.9) 12/17/21 05:50 Eos # (Auto) 0.5 10^3/uL (0.0-0.8) 12/17/21 05:50 Baso # (Auto) 0.1 10^3/uL (0.0-0.1) 12/17/21 05:50 Nucleated RBC % (auto) 0 % 12/17/21 05:50 Nucleated RBCs # 0.0 /100WBC 12/17/21 05:50 Sodium 139 mmol/L (136-145) 12/17/21 05:50 Potassium 3.6 mmol/L (3.5-5.1) 12/17/21 05:50 Chloride 99 mmol/L (98-107) 12/17/21 05:50 Carbon Dioxide 26 mmol/L (22-29) 12/17/21 05:50 Anion Gap 17.6 (5-19) 12/17/21 05:50 BUN 11 mg/dL (6-20) 12/17/21 05:50 Creatinine 0.8 mg/dL (0.7-1.2) 12/17/21 05:50 GFR Calculation 106.0 mL/min (90-130) 12/17/21 05:50 Glucose 103 mg/dL (65-115) 12/17/21 05:50 Calculated Osmolality 288 mOsm/kg (285-295) 12/17/21 05:50 Calcium 9.4 mg/dL (8.5-10.5) 12/17/21 05:50 Creatine Kinase 87 U/L (39-308) 12/17/21 05:50 Discharge Plan Discharge Patient Disposition: Home Clinical Impression: Acute anxiety Condition: Stable Prescriptions: New buspirone 15 mg tablet 7.5 mg PO BID Qty: 30 0RF hydroxyzine HCl 25 mg tablet 25 mg PO Q6H PRN (Reason: anxiety) Qty: 10 0RF No Action hydrocodone-acetaminophen 5-325 mg tablet 1 tab PO Q6H PRN0RF gabapentin 100 mg capsule 100 mg PO BID 0RF muscle relaxer PO 0RF Discharge Orders: Discharge ED (Routine); Ordered 12/17/21 Ordered By: Marty Dong Discharge Diet: Usual diet Discharge Activity: Resume usual activity Patient Instructions: Opioid Safety Activity Restrictions/Additional Instructions: Follow-up with [facility] for long-term management of your anxiety issues. Sign Out Sign Out Data: Patient Sign Out occurred on 12/17/21 at 06:56. Patient's care was discussed, and care was transferred from to Marty Dong DO. Coding Level of Care Code ED Certified Nuclear Medicine Technologist for Elaina Summers
--- NOTE | 2021-12-17 05:37 | ECG_ITS ---
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 Measurements Intervals [place] Rate: 106 P: 74 LA: 158 QRS: 73 QRSD: 94 T: 54 QT: 337 QTc: 449 Interpretive Statements SINUS TACHYCARDIA ABNORMAL RHYTHM ECG No previous ECG available for comparison Electronically Signed On 12-17-2021 20:29:42 CDT by Eliana Enrique M.D. [email or web address]
[2021-12-17] MEDS: sodium chloride 0.9% 1,000 ML 999 ML IV (05:52)
[2021-12-17 06:13] LABS: Basophils # 0.1 10^3/uL (0.0-0.1); Basophils % 0.8 %; Eosinophils # 0.5 10^3/uL (0.0-0.8); Eosinophils % 7.4 %; Hematocrit 51.1 % (42.0-52.0); Lymphocytes # 2.2 10^3/uL (0.8-4.8); Lymphocytes % 29.4 %; Mean Corpuscular HGB Conc 33.3 g/dL (30.0-36.0); Mean Corpuscular Volume 90.3 fl (80-94); Mean Platelet Volume 9.3 fL (7.4-10.4); Monocytes # 0.8 10^3/uL (0.2-0.9); Monocytes % 11.5 %; Neutrophils % 50.6 %; Nucleated Red Blood Cells % 0 %; Platelet Count 354 10^3/cmm (130-400); Red Blood Count 5.66 10^6/uL (4.1-5.3); Red Cell Distribution Width 14.4 % (12.1-15.1); White Blood Count 7.3 10^3/uL (4.0-10.0)
[2021-12-17 06:31] VITALS: BP 144/102; PULSE 92; RESP 16; O2SAT 100
[2021-12-17 06:37] LABS: Anion Gap 17.6 (5-19); Blood Urea Nitrogen 11 mg/dL (6-20); Calcium 9.4 mg/dL (8.5-10.5); Carbon Dioxide 26 mmol/L (22-29); Chloride 99 mmol/L (98-107); Creatine Phosphokinase 87 U/L (39-308); Creatinine Clr Calc Pharmacy 118.4772; Glucose 103 mg/dL (65-115); Osmolality Calculated 288 mOsm/kg (285-295); Potassium 3.6 mmol/L (3.5-5.1); Sodium 139 mmol/L (136-145)
[2021-12-17 07:06] VITALS: BP 124/94; PULSE 87; RESP 18; O2SAT 99
--- NOTE | 2021-12-17 07:13 | PC.NURSE ---
Patient notified of the need to get urine sample. Patient verbalized understanding.
[2021-12-17 07:45] VITALS: BP 144/95; PULSE 99; RESP 16; O2SAT 96
== END 2021-12-17 07:47 | disposition home or self-care (01) ==
PROVIDERS: Emergency Medicine; Emergency Provider Family Medicine
DX: F41.9 Anxiety disorder, unspecified (principal); F17.200 Nicotine dependence, unspecified, uncomplicated
CPT/HCPCS: 80048; 82550; 85025; 93005; 96360; 99283; J7030

== ENCOUNTER 2021-12-25 02:44 | Inpatient (IN) | payer SELFPAY ==
[2021-12-25] VITALS (7 sets, daily range): BP systolic 108–150; BP diastolic 66–105; PULSE 66–105; RESP 16–20; TEMP 36.2–36.8; O2SAT 94–98; BMI 20.7
--- NOTE | 2021-12-25 02:57 | ED.C_ITS ---
HPI - Psych General: Chief Complaint: Psychiatric Symptoms Stated Complaint: depressed Time Seen by Provider: 12/25/21 02:45 Source: patient Mode of arrival: ambulatory Limitations: no limitations History of Present Illness: 41-year-old male history of depression and homelessness he states that he is just been increasing depressed and does not want to do. He denies any suicidal plan but states that he just feels like he no longer wants to live anymore. He voluntarily wants to be admitted to the [facility] to get help. Denies any other previous admissions he is not on any current medicines. Associated symptoms: Reports depression Review of Systems Const: Denies: fever(s), chills, body aches or change in appetite Eyes: Denies: blurry vision or eye discomfort ENMT: Denies: throat pain or dental pain Card: Denies: chest pain Resp: Denies: dyspnea GI: Denies: abdominal pain, nausea, vomiting or diarrhea : Denies: dysuria Musc: Denies: neck pain or back pain Skin/Breast: Denies: rash Neuro: Denies: headache(s) Psych: Reports: depression [place]/Lymph: Denies: easy bruising All/Imm: Denies: urticaria PFSH ED PFSH: Medical History No pertinent past medical history Surgical History History of mandibular surgery Social History Smoking and tobacco status: current every day smoker Physical Exam Const: COMMON NORMALS: patient oriented x3 HENMT: COMMON NORMALS: normocephalic and atraumatic HEAD & SCALP: normocephalic and atraumatic Eye: COMMON NORMALS: Equal, round and reactive pupils present and EOMs intact bilaterally PUPIL: Yes Equal, round and reactive pupils present Neck/C-Spine: COMMON NORMALS: full ROM and supple Chest: COMMONS NORMALS: normal inspection of the chest and normal palpation of entire chest wall Resp: COMMON NORMALS: normal respiratory effort, No retractions, No use of accessory muscles and clear to auscultation bilaterally AUSCULTATION: clear to auscultation bilaterally Cardio: COMMON NORMALS: regular rate, regular rhythm and No murmurs present (Cardio) RATE: regular rate RHYTHM: regular rhythm GI: COMMON NORMALS: Normal to inspection, nondistended, normoactive bowel sounds present, Soft to palpation, non-tender and no masses PALPATION: Yes Soft to palpation Extremity: COMMON NORMALS: normal to inspection and full ROM Neuro: COMMON NORMALS: patient oriented x3, moves all extremities and no focal motor deficits Psych: COMMON NORMALS: mental status grossly normal, Normal thought process present and cooperative MOOD & AFFECT: Yes depressed mood THOUGHT PROCESS: Normal thought process present Skin: COMMON NORMALS: no rashes or lesions noted and no wounds GENERAL SKIN EXAM: no rashes or lesions noted Course Vital Signs: Vital signs: Vital Signs Temperature 97.5 F L 12/25/21 02:52 Pulse Rate 91 12/25/21 03:03 Respiratory Rate 16 12/25/21 03:03 Blood Pressure 117/83 12/25/21 03:03 Pulse Oximetry 97 12/25/21 03:03 MDM - Psych Medical Decision Making Patient presents here with depression patient's voluntarily wanting admitted I spoke to psychiatrist patient is medically cleared will admit the [facility]. Lab Data : 12/25/21 03:16 12/25/21 03:16 Laboratory Results WBC 8.4 10^3/uL (4.0-10.0) 12/25/21 03:16 RBC 5.01 10^6/uL (4.1-5.3) 12/25/21 03:16 Hgb 15.3 g/dL (11.7-16.6) 12/25/21 03:16 Hct 45.8 % (42.0-52.0) 12/25/21 03:16 MCV 91.4 fl (80-94) 12/25/21 03:16 MCH 30.5 pg (28.0-34.0) 12/25/21 03:16 MCHC 33.4 g/dL (30.0-36.0) 12/25/21 03:16 RDW 14.2 % (12.1-15.1) 12/25/21 03:16 Plt Count 300 10^3/cmm (130-400) 12/25/21 03:16 MPV 9.3 fL (7.4-10.4) 12/25/21 03:16 Neut % (Auto) 55.3 % 12/25/21 03:16 Lymph % (Auto) 28.4 % 12/25/21 03:16 [place] % (Auto) 8.6 % 12/25/21 03:16 Eos % (Auto) 6.8 % 12/25/21 03:16 Baso % (Auto) 0.7 % 12/25/21 03:16 Neut # (Auto) 4.61 10^3/uL (1.8-7.7) 12/25/21 03:16 Lymph # (Auto) 2.4 10^3/uL (0.8-4.8) 12/25/21 03:16 [place] # (Auto) 0.7 10^3/uL (0.2-0.9) 12/25/21 03:16 Eos # (Auto) 0.6 10^3/uL (0.0-0.8) 12/25/21 03:16 Baso # (Auto) 0.1 10^3/uL (0.0-0.1) 12/25/21 03:16 Nucleated RBC % (auto) 0 % 12/25/21 03:16 Nucleated RBCs # 0.0 /100WBC 12/25/21 03:16 Sodium 140 mmol/L (136-145) 12/25/21 03:16 Potassium 4.1 mmol/L (3.5-5.1) 12/25/21 03:16 Chloride 98 mmol/L (98-107) 12/25/21 03:16 Carbon Dioxide 32 mmol/L (22-29) H 12/25/21 03:16 Anion Gap 14.1 (5-19) 12/25/21 03:16 BUN 14 mg/dL (6-20) 12/25/21 03:16 Creatinine 0.8 mg/dL (0.7-1.2) 12/25/21 03:16 GFR Calculation 106.0 mL/min (90-130) 12/25/21 03:16 Glucose 105 mg/dL (65-115) 12/25/21 03:16 Calculated Osmolality 291 mOsm/kg (285-295) 12/25/21 03:16 Calcium 9.7 mg/dL (8.5-10.5) 12/25/21 03:16 Total Bilirubin 0.3 mg/dL (0.15-1.2) 12/25/21 03:16 AST 24 U/L (0-40) 12/25/21 03:16 ALT 14 U/L (0-41) 12/25/21 03:16 Alkaline Phosphatase 116 IU/L (40-130) 12/25/21 03:16 Total Protein 7.5 g/dL (6.6-8.7) 12/25/21 03:16 Albumin 4.7 g/dL (3.5-5.2) 12/25/21 03:16 Globulin 2.8 g/dL (1.3-4.6) 12/25/21 03:16 Salicylates < 0.3 mg/dL (3-10) L 12/25/21 03:16 Acetaminophen < 5.0 ug/mL (10-30) L 12/25/21 03:16 Ethyl Alcohol < 10 mg/dL (0-10) 12/25/21 03:16 Discharge Plan Discharge Patient Disposition: Admitted As Inpatient Clinical Impression: Depression Condition: Stable Coding Level of Care Code ED Inside Sales Account Executive for Elaina Fwd Exam Comprehensive
[2021-12-25 03:25] LABS: Basophils # 0.1 10^3/uL (0.0-0.1); Basophils % 0.7 %; Eosinophils # 0.6 10^3/uL (0.0-0.8); Eosinophils % 6.8 %; Hematocrit 45.8 % (42.0-52.0); Hemoglobin 15.3 g/dL (11.7-16.6); Lymphocytes # 2.4 10^3/uL (0.8-4.8); Lymphocytes % 28.4 %; Mean Corpuscular HGB Conc 33.4 g/dL (30.0-36.0); Mean Corpuscular Hemoglobin 30.5 pg (28.0-34.0); Mean Corpuscular Volume 91.4 fl (80-94); Mean Platelet Volume 9.3 fL (7.4-10.4); Monocytes # 0.7 10^3/uL (0.2-0.9); Monocytes % 8.6 %; Neutrophils # 4.61 10^3/uL (1.8-7.7); Neutrophils % 55.3 %; Nucleated Red Blood Cells % 0 %; Platelet Count 300 10^3/cmm (130-400); Red Blood Count 5.01 10^6/uL (4.1-5.3); Red Cell Distribution Width 14.2 % (12.1-15.1); White Blood Count 8.4 10^3/uL (4.0-10.0)
[2021-12-25 03:41] LABS: Alanine Aminotransferase 14 U/L (0-41); Albumin Level 4.7 g/dL (3.5-5.2); Alkaline Phosphatase 116 IU/L (40-130); Anion Gap 14.1 (5-19); Aspartate Amino Transferase 24 U/L (0-40); Blood Urea Nitrogen 14 mg/dL (6-20); Calcium 9.7 mg/dL (8.5-10.5); Carbon Dioxide 32 mmol/L (22-29); Chloride 98 mmol/L (98-107); Globulin 2.8 g/dL (1.3-4.6); Glucose 105 mg/dL (65-115); Osmolality Calculated 291 mOsm/kg (285-295); Potassium 4.1 mmol/L (3.5-5.1); Sodium 140 mmol/L (136-145); Total Bilirubin 0.3 mg/dL (0.15-1.2); Total Protein 7.5 g/dL (6.6-8.7)
[2021-12-25 04:04] LABS: Acetaminophen < 5.0 ug/mL (10-30); Alcohol Level < 10 mg/dL (0-10); Salicylate < 0.3 mg/dL (3-10)
--- NOTE | 2021-12-25 11:10 | W.PM.NPUH&PS ---
Providers/Chief Complaint Admitting Physician: Mike Dumas MD Chief Complaint: depressed HPI NPU History of Present Illness Chandler Frederick is a 41 year old male Chief Complaint: Psychiatric Symptoms Stated Complaint: depressed Time Seen by Provider: 12/25/21 02:45 Source: patient Mode of arrival: ambulatory Limitations: no limitations History of Present Illness: 41-year-old male history of depression and homelessness he states that he is just been increasing depressed and does not want to do. He denies any suicidal plan but states that he just feels like he no longer wants to live anymore. He voluntarily wants to be admitted to the [facility] to get help. Denies any other previous admissions he is not on any current medicines. Associated symptoms: Reports depression He was admitted to the neuropsychiatric unit for definitive treatment of those issues. He presents today reporting that he may have been in a psychiatric facility as a child but denies any times as an adult. He reports that he has not had outpatient services and that he has not been on psychiatric medications except maybe when he was a kid. He was very resistant to the interview and was upset at varying degrees throughout the interview, mostly expressing being upset about being asked the same question by different people. He did report smoking about a pack of cigarettes a day. He reports drinking alcohol sometimes. He reports using marijuana as well as methamphetamines. He reports he has never been to rehab but has had DUI?s/drug and alcohol related charges. He reports that symptoms started back when he was a kid, he says ?I don?t know, maybe 9 to 10 years old?. When asked what exactly was going on, he said he was just a mean little kid. Many questions were then answered with ?I don?t know? frequently. He dd report that he has had suicidal thoughts in his life intermittently. He denies ever having a suicide attempt. He denies self-injurious behavior. He reports that he does have depression at times and that he was feeling depressed last night, felt tired. 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 He denies significant anxiety, denied issues related to psychosis, denying paranoia or hearing voices. He denied symptoms consistent with trauma, denying nightmares, flashbacks, hypervigilance, etc. and denied that he was interested in any medications or major interventions. PSYCHIATRIC HISTORY: As above. SUBSTANCE ABUSE HISTORY: As above. FAMILY HISTORY: He denies any family history of mental health or addiction issues, however we were fairly competent that we have evidence to the contrary based on family members and hospitalizations even at this facility. He denies any suicide attempts or completions in the family. DEVELOPMENTAL HISTORY: He denies any issues when he was born. He reports that he believes he learned to walk and talk and met his developmental milestones on time. He reports when he went off to school, he did not need speech therapy, learning support, emotional support, or special education classes. PSYCHOSOCIAL HISTORY: He reports that his mother and father were together when he was born, but he reports he does not really know how many siblings he has, reporting that he keeps discovering more and more all the time. When asked what that meant, and further probing, he gave the indication that possibly his dad had significant infidelity and that has led to more siblings than he would have known. He reports that his childhood was great, but it started to feel like these were just answers he was given and not how he really felt. He denied any emotional, physical, or sexual abuse, any C[facility] involvement, ever being placed outside of the home, any histories of trauma. He then went on to say he did not know the highest grade that he made it to, and then after that he started basically digressing and not wanting to answer any more questions. Meds NPU Home Medications Medication Instructions Recorded Confirmed Last Taken Type No Known Home Medications 12/25/21 12/25/21 Unknown History Allergies Allergy/AdvReac Type Severity Reaction Status Date / Time No Known Allergies Allergy Verified 09/03/21 09:23 [facility] NPU PFSH: Medical History No pertinent past medical history Surgical History History of mandibular surgery Social History Smoking and tobacco status: current every day smoker Mental Status Exam MSE Comments: This is a slender, white male, in hospital scrubs, with limited grooming, and eye contact. Poor dentition. Mostly uncooperative with exam in mild to moderate distress. Speech was decreased rate and volume. Mood described as fine; affect irritable. Thought process, organized. Thought content: patient denied any suicidal or homicidal ideation, there were no delusions reported or noted, patient denied any auditory or visual hallucinations. Attention, concentration, and memory appear intact but were not formally tested. He is alert and oriented times three. Insight and judgment are limited. Impulse control limited. Vitals/I&O/Wt Last Vital Signs Temp 97.1 F L 12/25/21 04:37 Pulse 89 12/25/21 04:37 Resp 16 12/25/21 06:00 BP 108/66 12/25/21 04:37 Pulse Ox 94 12/25/21 04:37 Weight last 48 hrs Weight 63.503 kg Weight 63.503 kg Data NPU : 12/25/21 03:16 12/25/21 03:16 A&P Assessment and plan (1) Depression: Status: Acute (2) Methamphetamine use disorder, severe: Status: Acute (3) Malingering: Status: Acute Plan This is a 41-year-old, white male, with a long history of addiction and mental health issues, but no recent treatment, who presented to the emergency department reporting being tired and having really negative thoughts, who presents today denying any concerns that can be helped in this setting and wanting to discharge against medical advice. RECOMMENDATION AND PLAN: 1. Continue current medication. Will recommend patient consider further evaluation for medication options but refusing. 2. Encourage individual, group, and milieu therapy. 3. Continue q-15 minute checks for safety. 4. Encourage sober living treatment after discharge, at the highest level of care, to which he is willing to commit. Involuntary Hold Information 96 Hour Hold: 96 Hour Involuntary Admission: No Attestations NPU Medical Necessity Statement*: Inpatient hospitalization is medically necessary and the clinically appropriate intervention, at this time. We will monitor medications and make changes as indicated. Patient will be in the hospital for over two midnights. Likely length of stay is three to five days. The patient is suggesting that he wants to leave against medical advice and there are currently no identifiable factors for why a 96-hour hold would be started now, so we will allow him to discharge if he were to move forward with that request. Coding Level of Care Code Acute Family Court Counsellor for Chg Fwd Diagnoses Depression F32.A Methamphetamine use disorder, severe F15.20 Malingering Z76.5
[2021-12-26 06:00] VITALS: BP 112/73; PULSE 61; RESP 16; TEMP 36.2; O2SAT 97
--- NOTE | 2021-12-26 14:25 | P.NPUDS_ITS ---
Diagnoses at Discharge Discharge Diagnosis (1) Depression: Status: Acute (2) Methamphetamine use disorder, severe: Status: Acute (3) Malingering: Status: Acute Reason for Visit Reason for Visit: depressed Brief History: History of Present Illness Chandler Frederick is a 41 year old male Chief Complaint: Psychiatric Symptoms Stated Complaint: depressed Time Seen by Provider: 12/25/21 02:45 Source: patient Mode of arrival: ambulatory Limitations: no limitations History of Present Illness:?? 41-year-old male history of depression and homelessness he states that he is just been increasing depressed and does not want to do.? He denies any suicidal plan but states that he just feels like he no longer wants to live anymore.? He voluntarily wants to be admitted to the [facility] to get help.? Denies any other previous admissions he is not on any current medicines. Associated symptoms: Reports depression He was admitted to the neuropsychiatric unit for definitive treatment of those issues. He presents today reporting that he may have been in a psychiatric facility as a child but denies any times as an adult. He reports that he has not had outpatient services and that he has not been on psychiatric medications except maybe when he was a kid. He was very resistant to the interview and was upset at varying degrees throughout the interview, mostly expressing being upset about being asked the same question by different people. He did report smoking about a pack of cigarettes a day. He reports drinking alcohol sometimes. He reports using marijuana as well as methamphetamines. He reports he has never been to rehab but has had DUI?s/drug and alcohol related charges. He reports that symptoms started back when he was a kid, he says ?I don?t know, maybe 9 to 10 years old?. When asked what exactly was going on, he said he was just a mean little kid. Many questions were then answered with ?I don?t know? frequently. He dd report that he has had suicidal thoughts in his life intermittently. He denies ever having a suicide attempt. He denies self-injurious behavior. He reports that he does have depression at times and that he was feeling depressed last night, felt tired. 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 He denies significant anxiety, denied issues related to psychosis, denying paranoia or hearing voices. He denied symptoms consistent with trauma, denying nightmares, flashbacks, hypervigilance, etc. and denied that he was interested in any medications or major interventions. PSYCHIATRIC HISTORY: As above. SUBSTANCE ABUSE HISTORY: As above. FAMILY HISTORY: He denies any family history of mental health or addiction issues, however we were fairly competent that we have evidence to the contrary based on family members and hospitalizations even at this facility. He denies any suicide attempts or completions in the family. DEVELOPMENTAL HISTORY: He denies any issues when he was born. He reports that he believes he learned to walk and talk and met his developmental milestones on time. He reports when he went off to school, he did not need speech therapy, learning support, emotional support, or special education classes. PSYCHOSOCIAL HISTORY: He reports that his mother and father were together when he was born, but he reports he does not really know how many siblings he has, reporting that he keeps discovering more and more all the time. When asked what that meant, and further probing, he gave the indication that possibly his dad had significant infidelity and that has led to more siblings than he would have known. He reports that his childhood was great, but it started to feel like these were just answers he was given and not how he really felt. He denied any emotional, physical, or sexual abuse, any CYS involvement, ever being placed outside of the home, any histories of trauma. He then went on to say he did not know the highest grade that he made it to, and then after that he started basically digressing and not wanting to answer any more questions Hospital Course Hospital Course He never really acclimated to the individual, group and milieu therapies provid ed. It was unclear whether he was malingering or just at a place where he was unable to participate in the process. In the very beginning he said he did not like how he asked questions and that there was redundancy and that he was leaving but he never would make any movement towards leaving. He was just that there and sleep get up to eat and be nasty toward people. Ultimately in the final conversation we discussed his options to participate and engage with the social work team and treatment or discharge. He was able to contract for safety outside hospital prior to discharge. But he continued to refuse to engage. During hospitalization his army senior officer came over and visited with him and she got no more engagement out of him than we did. During the hospitalization, patient had routine laboratory studies which were within normal limits except for few outliers. Additionally there was a general medical evaluation which was also within normal limits and revealed no new acute processes. Discharge Summary: At the time of discharge, he denies ptosis or lethality. Mood and anxiety were well managed. Patient was evaluated and deemed to be absent credible lethality, and had achieved the maximum benefit from an inpatient hospitalization given his lack of participation, so he was discharged. Involuntary Hold Information 2 96 Hour Hold: 96 Hour Involuntary Admission: No Mental Status Exam MSE Comments: This is a slender, white male, in hospital scrubs, with limited grooming, and eye contact. Poor dentition. Mostly uncooperative with exam in mild distress. Speech was decreased rate and volume. Mood described as fine; affect irritable. Thought process, organized. Thought content: patient denied any suicidal or homicidal ideation, there were no delusions reported or noted, patient denied any auditory or visual hallucinations. Attention, concentration, and memory appear intact but were not formally tested. He is alert and oriented times three. Insight and judgment are limited. Impulse control limited. Discharge Data Studies Completed and Pending: Pending at discharge Category Date Time Status Drug Screen, Urin e Stat Lab 12/25/21 02:57 Uncollected Laboratory Results WBC 8.4 10^3/uL (4.0- 10.0) 12/25/21 03:16 RBC 5.01 10^6/uL (4.1 -5.3) 12/25/21 03:16 Hgb 15.3 g/dL (11.7-1 6.6) 12/25/21 03:16 Hct 45.8 % (42.0-52.0 ) 12/25/21 03:16 MCV 91.4 fl (80-94) 12/25/21 03:16 MCH 30.5 pg (28.0-34. 0) 12/25/21 03:16 MCHC 33.4 g/dL (30.0-3 6.0) 12/25/21 03:16 RDW 14.2 % (12.1-15.1 ) 12/25/21 03:16 Plt Count 300 10^3/cmm (130 -400) 12/25/21 03:16 MPV 9.3 fL (7.4-10.4) 12/25/21 03:16 Neut % (Auto) 55.3 % 12/25/21 03:16 Lymph % (Auto) 28.4 % 12/25/21 03:16 [place] % (Auto) 8.6 % 12/25/21 03:16 Eos % (Auto) 6.8 % 12/25/21 03:16 Baso % (Auto) 0.7 % 12/25/21 03:16 Neut # (Auto) 4.61 10^3/uL (1.8 -7.7) 12/25/21 03:16 Lymph # (Auto) 2.4 10^3/uL (0.8- 4.8) 12/25/21 03:16 [place] # (Auto) 0.7 10^3/uL (0.2- 0.9) 12/25/21 03:16 Eos # (Auto) 0.6 10^3/uL (0.0- 0.8) 12/25/21 03:16 Baso # (Auto) 0.1 10^3/uL (0.0- 0.1) 12/25/21 03:16 Nucleated RBC % (a uto) 0 % 12/25/21 03:16 Nucleated RBCs # 0.0 /100WBC 12/25/21 03:16 Sodium 140 mmol/L (136-1 45) 12/25/21 03:16 Potassium 4.1 mmol/L (3.5-5 .1) 12/25/21 03:16 Chloride 98 mmol/L (98-107 ) 12/25/21 03:16 Carbon Dioxide 32 mmol/L (22-29) H 12/25/21 03:16 Anion Gap 14.1 (5-19) 12/25/21 03:16 BUN 14 mg/dL (6-20) 12/25/21 03:16 Creatinine 0.8 mg/dL (0.7-1. 2) 12/25/21 03:16 GFR Calculation 106.0 mL/min (90- 130) 12/25/21 03:16 Glucose 105 mg/dL (65-115 ) 12/25/21 03:16 Calculated Osmolal ity 291 mOsm/kg (285- 295) 12/25/21 03:16 Calcium 9.7 mg/dL (8.5-10 .5) 12/25/21 03:16 Total Bilirubin 0.3 mg/dL (0.15-1 .2) 12/25/21 03:16 AST 24 U/L (0-40) 12/25/21 03:16 ALT 14 U/L (0-41) 12/25/21 03:16 Alkaline Phosphata se 116 IU/L (40-130) 12/25/21 03:16 Total Protein 7.5 g/dL (6.6-8.7 ) 12/25/21 03:16 Albumin 4.7 g/dL (3.5-5.2 ) 12/25/21 03:16 Globulin 2.8 g/dL (1.3-4.6 ) 12/25/21 03:16 Salicylates < 0.3 mg/dL (3-10 ) L 12/25/21 03:16 Acetaminophen < 5.0 ug/mL (10-3 0) L 12/25/21 03:16 Ethyl Alcohol < 10 mg/dL (0-10) 12/25/21 03:16 Vitals: Last Vital Signs Temp 97.1 F L 12/26/21 06:00 Pulse 61 12/26/21 06:00 Resp 16 12/26/21 06:00 BP 112/73 12/26/21 06:00 Pulse Ox 97 12/26/21 06:00 Discharge Plan Discharge Patient Disposition: Home Condition: Stable Prescriptions: No Action No Known Home Medications 0RF Discharge Orders: Discharge Order (Routine); Ordered 12/26/21 Ordered By: Mike Dumas Referrals: [facility] [Other] Discharge Diet: Regular Discharge Activity: Resume usual activity Patient Instructions: Depression, Methamphetamine Use Disorder (DC), Opioid Safety Discharge Attestations NPU Time Spent in Discharge Care*: less than 30 min Specific Discharge Activities: Specific discharge activities: educating patient, discussing with caser shoe parts/social workers/dc planners, documenting/other paperwork and evaluating patient/reviewing data Coding Level of Care Code Acute Chg FW DC note Diagnoses Depression F32.A Methamphetamine use disorder, severe F15.20 Malingering Z76.5
[2021-12-26 14:34] VITALS: BP 112/73; PULSE 61; RESP 16; TEMP 36.2; O2SAT 97
== END 2021-12-26 14:45 | disposition home or self-care (01) | DRG 881 ==
LOC: ER 03:53 → NP 06:20
PROVIDERS: Admitting Provider Psychiatry & Neurology Psychiatry; Emergency Provider Emergency Medicine; Visit Provider Psychiatry & Neurology Psychiatry
DX: F32.A Depression, unspecified (principal); F15.20 Other stimulant dependence, uncomplicated; Z59.00 Homelessness unspecified; Z76.5 Malingerer [conscious simulation]
CPT/HCPCS: 80053; 80307; 85025; 97165; 99285

== ENCOUNTER 2022-03-02 23:42 | Emergency (ER) | payer SELFPAY ==
[2022-03-02 23:54] VITALS: BP 152/110; PULSE 93; RESP 16; TEMP 36.6; O2SAT 98; BMI 21.4
--- NOTE | 2022-03-02 23:55 | ED.C_ITS ---
HPI - Psych General: Chief Complaint: Psychiatric Symptoms Stated Complaint: SI Time Seen by Provider: 03/02/22 23:44 Source: patient Mode of arrival: ambulatory Limitations: no limitations History of Present Illness: 41-year-old male who brought here by police for depression he states that he has been having some depression he states he has not been able to find any work and is having a hard time. He does have a history of drug abuse. He denies any suicidal homicidal ideations. Patient does not have any affidavits did not state that he is suicidal to police he states he has no plans at all to kill himself. Associated symptoms: Reports depression Review of Systems Const: Denies: fever(s), chills, body aches or change in appetite Eyes: Denies: blurry vision or eye discomfort ENMT: Denies: throat pain or dental pain Card: Denies: chest pain Resp: Denies: dyspnea GI: Denies: abdominal pain, nausea, vomiting or diarrhea : Denies: dysuria Musc: Denies: neck pain or back pain Skin/Breast: Denies: rash Neuro: Denies: headache(s) Psych: Reports: depression [place]/Lymph: Denies: easy bruising All/Imm: Denies: urticaria PFSH ED PFSH: Medical History No pertinent past medical history Surgical History History of mandibular surgery Social History Smoking and tobacco status: current every day smoker Physical Exam Const: COMMON NORMALS: no acute distress, patient oriented x3 and healthy appearing HENMT: COMMON NORMALS: normocephalic and atraumatic HEAD & SCALP: normocephalic and atraumatic Eye: COMMON NORMALS: Equal, round and reactive pupils present and EOMs intact bilaterally PUPIL: Yes Equal, round and reactive pupils present Neck/C-Spine: COMMON NORMALS: full ROM and supple Chest: COMMONS NORMALS: normal inspection of the chest and normal palpation of entire chest wall Resp: COMMON NORMALS: normal respiratory effort, No retractions, No use of accessory muscles and clear to auscultation bilaterally AUSCULTATION: clear to auscultation bilaterally Cardio: COMMON NORMALS: regular rate, regular rhythm and No murmurs present (Cardio) RATE: regular rate RHYTHM: regular rhythm GI: COMMON NORMALS: Normal to inspection, nondistended, normoactive bowel sounds present, Soft to palpation, non-tender and no masses PALPATION: Yes Soft to palpation Extremity: COMMON NORMALS: normal to inspection and full ROM Neuro: COMMON NORMALS: patient oriented x3, moves all extremities and no focal motor deficits Psych: COMMON NORMALS: mental status grossly normal, Normal thought process present and cooperative THOUGHT PROCESS: Normal thought process present Skin: COMMON NORMALS: no rashes or lesions noted and no wounds GENERAL SKIN EXAM: no rashes or lesions noted Course Vital Signs: Vital signs: Vital Signs Temperature 97.9 F 03/02/22 23:54 Pulse Rate 93 03/02/22 23:54 Respiratory Rate 16 03/02/22 23:54 Blood Pressure 152/110 03/02/22 23:54 Pulse Oximetry 98 03/02/22 23:54 Oxygen Delivery Me thod 03/02/22 23:54 MDM - Psych Medical Decision Making Patient presents with depression he denies any suicidal or homicidal ideations to me I had patient evaluated by Dr. Dumas who agrees patient is stable for discharge he is not actively suicidal he is to follow-up his PCP and return if worsening he understands agrees to plan. Lab Data : 03/02/22 23:48 03/02/22 23:48 Laboratory Results WBC 8.5 10^3/uL (4.0-10.0) 03/02/22 23:48 RBC 5.02 10^6/uL (4.1-5.3) 03/02/22 23:48 Hgb 15.2 g/dL (11.7-16.6) 03/02/22 23:48 Hct 45.6 % (42.0-52.0) 03/02/22 23:48 MCV 90.8 fl (80-94) 03/02/22 23:48 MCH 30.3 pg (28.0-34.0) 03/02/22 23:48 MCHC 33.3 g/dL (30.0-36.0) 03/02/22 23:48 RDW 14.0 % (12.1-15.1) 03/02/22 23:48 Plt Count 312 10^3/cmm (130-400) 03/02/22 23:48 MPV 9.3 fL (7.4-10.4) 03/02/22 23:48 Neut % (Auto) 55.6 % 03/02/22 23:48 Lymph % (Auto) 28.4 % 03/02/22 23:48 [place] % (Auto) 12.5 % 03/02/22 23:48 Eos % (Auto) 2.7 % 03/02/22 23:48 Baso % (Auto) 0.7 % 03/02/22 23:48 Neut # (Auto) 4.72 10^3/uL (1.8-7.7) 03/02/22 23:48 Lymph # (Auto) 2.4 10^3/uL (0.8-4.8) 03/02/22 23:48 [place] # (Auto) 1.1 10^3/uL (0.2-0.9) H 03/02/22 23:48 Eos # (Auto) 0.2 10^3/uL (0.0-0.8) 03/02/22 23:48 Baso # (Auto) 0.1 10^3/uL (0.0-0.1) 03/02/22 23:48 Nucleated RBC % (auto) 0 % 03/02/22 23:48 Nucleated RBCs # 0.0 /100WBC 03/02/22 23:48 Sodium 136 mmol/L (136-145) 03/02/22 23:48 Potassium 3.8 mmol/L (3.5-5.1) 03/02/22 23:48 Chloride 94 mmol/L (98-107) L 03/02/22 23:48 Carbon Dioxide 23 mmol/L (22-29) 03/02/22 23:48 Anion Gap 22.8 (5-19) H 03/02/22 23:48 BUN 16 mg/dL (6-20) 03/02/22 23:48 Creatinine 1.2 mg/dL (0.7-1.2) 03/02/22 23:48 GFR Calculation 66.4 mL/min (90-130) L 03/02/22 23:48 Glucose 93 mg/dL (65-115) 03/02/22 23:48 Calculated Osmolality 283 mOsm/kg (285-295) L 03/02/22 23:48 Calcium 10.2 mg/dL (8.5-10.5) 03/02/22 23:48 Total Bilirubin 0.9 mg/dL (0.15-1.2) 03/02/22 23:48 AST 29 U/L (0-40) 03/02/22 23:48 ALT 18 U/L (0-41) 03/02/22 23:48 Alkaline Phosphatase 112 IU/L (40-130) 03/02/22 23:48 Total Protein 8.0 g/dL (6.6-8.7) 03/02/22 23:48 Albumin 5.0 g/dL (3.5-5.2) 03/02/22 23:48 Globulin 3.0 g/dL (1.3-4.6) 03/02/22 23:48 Salicylates 0.7 mg/dL (3-10) L 03/02/22 23:48 Acetaminophen < 5.0 ug/mL (10-30) L 03/02/22 23:48 Ethyl Alcohol < 10 mg/dL (0-10) 03/02/22 23:48 Discharge Plan Discharge Patient Disposition: Home Clinical Impression: Depression Condition: Stable Prescriptions: No Action No Known Home Medications Discharge Orders: Discharge ED (Routine); Ordered 03/03/22 Ordered By: Benjy Griffin Discharge Diet: Advance as tolerated Discharge Activity: Resume usual activity Coding Level of Care Code ED Nicking Machine Operator for Elaina Fwd Exam Comprehensive
[2022-03-02 23:57] LABS: Basophils # 0.1 10^3/uL (0.0-0.1); Basophils % 0.7 %; Eosinophils # 0.2 10^3/uL (0.0-0.8); Eosinophils % 2.7 %; Hematocrit 45.6 % (42.0-52.0); Hemoglobin 15.2 g/dL (11.7-16.6); Lymphocytes # 2.4 10^3/uL (0.8-4.8); Lymphocytes % 28.4 %; Mean Corpuscular HGB Conc 33.3 g/dL (30.0-36.0); Mean Corpuscular Hemoglobin 30.3 pg (28.0-34.0); Mean Corpuscular Volume 90.8 fl (80-94); Mean Platelet Volume 9.3 fL (7.4-10.4); Monocytes # 1.1 10^3/uL (0.2-0.9); Monocytes % 12.5 %; Neutrophils # 4.72 10^3/uL (1.8-7.7); Neutrophils % 55.6 %; Nucleated Red Blood Cells % 0 %; Platelet Count 312 10^3/cmm (130-400); Red Blood Count 5.02 10^6/uL (4.1-5.3); White Blood Count 8.5 10^3/uL (4.0-10.0)
[2022-03-03 00:14] LABS: Alanine Aminotransferase 18 U/L (0-41); Alkaline Phosphatase 112 IU/L (40-130); Anion Gap 22.8 (5-19); Aspartate Amino Transferase 29 U/L (0-40); Blood Urea Nitrogen 16 mg/dL (6-20); Calcium 10.2 mg/dL (8.5-10.5); Carbon Dioxide 23 mmol/L (22-29); Chloride 94 mmol/L (98-107); Glomerular Filtration Rate 66.4 mL/min (90-130); Glucose 93 mg/dL (65-115); Osmolality Calculated 283 mOsm/kg (285-295); Potassium 3.8 mmol/L (3.5-5.1); Salicylate 0.7 mg/dL (3-10); Sodium 136 mmol/L (136-145); Total Bilirubin 0.9 mg/dL (0.15-1.2)
[2022-03-03 00:18] LABS: Acetaminophen < 5.0 ug/mL (10-30); Alcohol Level < 10 mg/dL (0-10)
== END 2022-03-03 01:12 | disposition home or self-care (01) ==
PROVIDERS: Emergency Provider Emergency Medicine
DX: F32.A Depression, unspecified (principal); F17.210 Nicotine dependence, cigarettes, uncomplicated
CPT/HCPCS: 80053; 80307; 85025; 99283

== ENCOUNTER 2022-03-15 15:04 | Emergency (ER) | payer SELFPAY ==
[2022-03-15 15:33] VITALS: BP 136/88; PULSE 94; RESP 18; TEMP 36.8; O2SAT 100; BMI 25.0
--- NOTE | 2022-03-15 16:09 | PC.NURSE ---
PT IN 2ND TRIAGE ROOM RESTING QUIETLY WITH EYES CLOSED. PT ASKED IF HE WAS OKAY HE OPENED HIS EYES AND STATED, YES . PT HAS GOOD CHEST RISE AND FALL.
--- NOTE | 2022-03-15 17:34 | ECG_ITS ---
[facility] Test Date: 2022-03-15 Pat Name: Chandler Frederick Department: Room: Gender: Male Rose Grader: : 1980 Requested By: Jackie Moreno Order Number: [id number] Venkatesh MD: Seun Berry M.D. Measurements Intervals [place] Rate: 85 P: 82 MD: 158 QRS: 80 QRSD: 102 T: 72 QT: 386 QTc: 462 Interpretive Statements SINUS RHYTHM Compared to ECG 12/17/2021 05:44:42 Sinus tachycardia no longer present Electronically Signed On 03-16-2022 17:38:21 CDT by Seun Berry M.D. [id number]
[2022-03-15 17:56] LABS: Basophils % 0.6 %; Eosinophils # 0.2 10^3/uL (0.0-0.8); Eosinophils % 2.5 %; Hematocrit 46.4 % (42.0-52.0); Hemoglobin 15.4 g/dL (11.7-16.6); Lymphocytes # 1.9 10^3/uL (0.8-4.8); Lymphocytes % 28.8 %; Mean Corpuscular HGB Conc 33.2 g/dL (30.0-36.0); Mean Corpuscular Volume 90.3 fl (80-94); Mean Platelet Volume 9.5 fL (7.4-10.4); Monocytes # 0.7 10^3/uL (0.2-0.9); Monocytes % 10.9 %; Neutrophils # 3.81 10^3/uL (1.8-7.7); Neutrophils % 57.1 %; Nucleated Red Blood Cells % 0 %; Platelet Count 314 10^3/cmm (130-400); Red Blood Count 5.14 10^6/uL (4.1-5.3); Red Cell Distribution Width 14.1 % (12.1-15.1); White Blood Count 6.7 10^3/uL (4.0-10.0)
[2022-03-15 18:24] LABS: Alanine Aminotransferase 17 U/L (0-41); Albumin Level 4.9 g/dL (3.5-5.2); Alkaline Phosphatase 97 IU/L (40-130); Aspartate Amino Transferase 28 U/L (0-40); Blood Urea Nitrogen 27 mg/dL (6-20); Carbon Dioxide 23 mmol/L (22-29); Chloride 93 mmol/L (98-107); Globulin 2.9 g/dL (1.3-4.6); Glomerular Filtration Rate 73.4 mL/min (90-130); Glucose 100 mg/dL (65-115); Lipase 91 U/L (13-60); Osmolality Calculated 283 mOsm/kg (285-295); Sodium 134 mmol/L (136-145); Total Bilirubin 0.7 mg/dL (0.15-1.2); Total Protein 7.8 g/dL (6.6-8.7)
[2022-03-15 18:44] LABS: Anion Gap 21.5 (5-19)
[2022-03-15 18:45] LABS: Potassium 3.5 mmol/L (3.5-5.1)
== END 2022-03-15 20:37 | disposition left against medical advice (07) ==
PROVIDERS: Emergency Medicine; Emergency Provider Family Medicine
DX: Z53.21 Procedure and treatment not carried out due to patient leaving prior to being seen by health care provider (principal)
CPT/HCPCS: 80053; 83690; 85025; 93005

== ENCOUNTER 2022-12-13 10:15 | Inpatient (IN) | payer SELFPAY ==
[2022-12-13] VITALS (32 sets, daily range): BP systolic 123–165; BP diastolic 84–117; PULSE 97–148; RESP 15–29; TEMP 36.9; O2SAT 87–100
--- NOTE | 2022-12-13 10:24 | ED.C_ITS ---
HPI - Psych General: Chief Complaint: Psychiatric Symptoms Stated Complaint: PSYCH EVAL Time Seen by Provider: 12/13/22 10:15 Source: patient, EMS and police Mode of arrival: EMS Limitations: no limitations History of Present Illness: 42-year-old male has a long history of meth abuse. He was brought in by police and EMS for hallucinations. Patient is acutely psychotic here he is not really making much sense he thinks there is people in the room he thinks that people been trying to play pranks on them and are out to get him. He did admit to methamphetamine abuse this morning. Associated symptoms: Reports delusions; Deny depression Review of Systems Const: Denies: fever(s), chills, body aches or change in appetite Eyes: Denies: blurry vision or eye discomfort ENMT: Denies: throat pain or dental pain Card: Denies: chest pain Resp: Denies: dyspnea GI: Denies: abdominal pain, nausea, vomiting or diarrhea : Denies: dysuria Musc: Denies: neck pain or back pain Neuro: Denies: headache(s) Psych: Reports: paranoia; Denies: depression PFSH ED PFSH: Medical History No pertinent past medical history Surgical History History of mandibular surgery Social History Smoking and tobacco status: current every day smoker Physical Exam Const: COMMON NORMALS: patient oriented x3 GENERAL APPEARANCE: ill appearing HENMT: COMMON NORMALS: normocephalic and atraumatic HEAD & SCALP: normocephalic and atraumatic Eye: COMMON NORMALS: Equal, round and reactive pupils present and EOMs intact bilaterally PUPIL: Yes Equal, round and reactive pupils present Neck/C-Spine: COMMON NORMALS: full ROM and supple Chest: COMMONS NORMALS: normal inspection of the chest and normal palpation of entire chest wall Resp: COMMON NORMALS: normal respiratory effort, No retractions, No use of accessory muscles and clear to auscultation bilaterally AUSCULTATION: clear to auscultation bilaterally Cardio: COMMON NORMALS: regular rate, regular rhythm and No murmurs present (Cardio) RATE: regular rate RHYTHM: regular rhythm GI: COMMON NORMALS: Normal to inspection, nondistended, normoactive bowel sounds present, Soft to palpation, non-tender and no masses PALPATION: Yes Soft to palpation Extremity: COMMON NORMALS: normal to inspection and full ROM Neuro: COMMON NORMALS: patient oriented x3, moves all extremities and no focal motor deficits Psych: ATTITUDE: Yes paranoid, Yes bizarre and Yes agitated MOOD & AFFECT: Yes irritable THOUGHT PROCESS: disorganized THOUGHT CONTENT: Yes delusions and Yes Hallucination(s) present Skin: COMMON NORMALS: no rashes or lesions noted and no wounds GENERAL SKIN EXAM: no rashes or lesions noted Face to Face: Restrn/Seclusion Events leading up to initiation: Verbalizing threat to self or others and Combative/Striking out at staff or others Evaluation of patient's immediate situation: Alert and oriented Recent labs reviewed: Yes Review of medications: Yes Patient's current medical/behavioral condition: No new concerns since last ROS Course Reevaluation(s): Reevaluation #1: ThreatenedPatient is escalating here he is refusing to get in a gown refusing to give up his items including a rock nurse that he was in a stab her with a needle I tried to verbally de-escalate and it was unsuccessful did have to place him into four-point restraints and restraint by and will have to chemically sedate him with ketamine at this time Time: 10:55 Reevaluation #2: Patient was removed from his physical restraints and changed into a gown Time: 11:21 Vital Signs: Vital signs: Vital Signs Pulse Rate 100 12/13/22 13:00 Respiratory Rate 18 12/13/22 13:00 Blood Pressure 165/95 12/13/22 13:02 Pulse Oximetry 95 12/13/22 13:00 Oxygen Delivery Me thod Room Air 12/13/22 10:16 MDM - Psych Medical Decision Making Patient presents here with acute psychosis likely meth induced did have to physically and chemically restrain him due to him being noncompliant and getting very aggressive he has been cooperative now is able to take him out of the physical restraints he is medically cleared I spoke to the psychiatrist and will admit. Medical Records I reviewed the patient's medical records. Lab Data I reviewed the patient's lab results. 12/13/22 11:05 12/13/22 11:05 Discharge Plan Discharge Patient Disposition: Admitted As Inpatient Admit Provider: Efren Banks Clinical Impression: Methamphetamine use disorder, severe, Acute psychosis Condition: Stable Coding Level of Care Code ED Director Of Elementary Education for Elaina Summers
--- NOTE | 2022-12-13 11:03 | PC.NURSE ---
pt refusing to give up personal belongings, refused to change into paper scrubs, made threats to staff. pt became combative when nurse attempted to medicate.
[2022-12-13 11:16] LABS: Basophils # 0.1 10^3/uL (0.0-0.1); Basophils % 0.9 %; Eosinophils # 0.1 10^3/uL (0.0-0.8); Eosinophils % 1.1 %; Hematocrit 45.9 % (42.0-52.0); Lymphocytes # 2.7 10^3/uL (0.8-4.8); Lymphocytes % 27.8 %; Mean Corpuscular HGB Conc 32.7 g/dL (30.0-36.0); Mean Corpuscular Hemoglobin 29.5 pg (28.0-34.0); Mean Corpuscular Volume 90.4 fl (80-94); Mean Platelet Volume 9.2 fL (7.4-10.4); Monocytes % 10.1 %; Neutrophils # 5.85 10^3/uL (1.8-7.7); Neutrophils % 59.9 %; Nucleated Red Blood Cells % 0 %; Platelet Count 281 10^3/cmm (130-400); Red Blood Count 5.08 10^6/uL (4.1-5.3); Red Cell Distribution Width 13.9 % (12.1-15.1); White Blood Count 9.8 10^3/uL (4.0-10.0)
[2022-12-13 11:34] LABS: Alanine Aminotransferase 11 U/L (0-41); Albumin Level 4.8 g/dL (3.5-5.2); Alkaline Phosphatase 95 U/L (40-130); Aspartate Amino Transferase 19 U/L (0-40); Blood Urea Nitrogen 14 mg/dL (6-20); Calcium 9.2 mg/dL (8.5-10.5); Carbon Dioxide 22 mmol/L (22-29); Chloride 99 mmol/L (98-107); Globulin 2.9 g/dL (1.3-4.6); Glomerular Filtration Rate 92.1 mL/min (90-130); Glucose 136 mg/dL (65-115); Osmolality Calculated 289 mOsm/kg (285-295); Sodium 138 mmol/L (136-145); Total Protein 7.7 g/dL (6.6-8.7)
[2022-12-13 11:46] LABS: Acetaminophen < 5.0 ug/mL (10-30); Alcohol Level < 10 mg/dL (0-10); Salicylate < 0.3 mg/dL (3-10)
--- NOTE | 2022-12-13 13:51 | PC.NURSE ---
Patient brought down from ER, arrived at 1329. Patient appeared confused when taken to his room via wheelchair when he was being helped from the wheelchair to the bed. He asked, what is that? when he was looking at the bed. The it security administrator explained that it was just a bed and he immediately laid down and closed his eyes. This RN asked if he could change into green scrubs so we could check his skin, but patient just stared straight ahead and then drifted off to sleep. This RN and security attempted to ask him multiple times if he wanted to change into his scrubs but he would only open his eyes, blink a few times, then go back to sleep.
--- NOTE | 2022-12-13 17:00 | P.NPUHP_ITS ---
Providers/Chief Complaint Admitting Physician: Efren Banks MD Chief Complaint: PSYCH EVAL HPI [facility] History of Present Illness Chandler Frederick is a 42 year old male with an extended history of methamphetamine abuse who presented to the emergency department by the police with disorganized thinking and complaints of auditory hallucinations. He had reported that he had felt like people were playing pranks on him and were trying to harm him. He had admitted to using methamphetamine and was brought onto the neuropsychiatric unit for further evaluation and treatment. The patient was excessively tired and was unable to answer any further questions on interview today. Psychiatric history: History of reported inpatient treatments both at the [facility] and other facilities were reported. Current medications: None Medical history no pertinent medical history reported, Surgical history: Reported history of jaw surgery Allergies: No known drug allergies Drug and alcohol history: History of reported methamphetamine use along with marijuana use as well. There have been no reported history of inpatient or out patient rehabilitation. Family psychiatric history: Unknown Social history: Limited, previous reports had stated that he had been homeless in the past few days. Excerpt from 12/26/21 Admission at [facility] is provided Below History of Present Illness Chandler Frederick is a 41 year old male Chief Complaint: Psychiatric Symptoms Stated Complaint: depressed Time Seen by Provider: 12/25/21 02:45 Source: patient Mode of arrival: ambulatory Limitations: no limitations History of Present Illness:?? 41-year-old male history of depression and homelessness he states that he is just been increasing depressed and does not want to do.? He denies any suicidal plan but states that he just feels like he no longer wants to live anymore.? He voluntarily wants to be admitted to the [facility] to get help.? Denies any other previous admissions he is not on any current medicines. Associated symptoms: Reports depression He was admitted to the neuropsychiatric unit for definitive treatment of those issues. He presents today reporting that he may have been in a psychiatric facility as a child but denies any times as an adult. He reports that he has not had outpatient services and that he has not been on psychiatric medications except maybe when he was a kid. He was very resistant to the interview and was upset at varying degrees throughout the interview, mostly expressing being upset about being asked the same question by different people. He did report smoking about a pack of cigarettes a day. He reports drinking alcohol sometimes. He reports using marijuana as well as methamphetamines. He reports he has never been to rehab but has had DUI?s/drug and alcohol related charges. He reports that symptoms started back when he was a kid, he says ?I don?t know, maybe 9 to 10 years old?. When asked what exactly was going on, he said he was just a mean little kid. Many questions were then answered with ?I don?t know? frequently. He dd report that he has had suicidal thoughts in his life intermittently. He denies ever having a suicide attempt. He denies self-injurious behavior. He reports that he does have depression at times and that he was feeling depressed last night, felt tired. 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 He denies significant anxiety, denied issues related to psychosis, denying paranoia or hearing voices. He denied symptoms consistent with trauma, denying nightmares, flashbacks, hypervigilance, etc. and denied that he was interested in any medications or major interventions. PSYCHIATRIC HISTORY: As above. SUBSTANCE ABUSE HISTORY: As above. FAMILY HISTORY: He denies any family history of mental health or addiction issues, however we were fairly competent that we have evidence to the contrary based on family members and hospitalizations even at this facility. He denies any suicide attempts or completions in the family. DEVELOPMENTAL HISTORY: He denies any issues when he was born. He reports that he believes he learned to walk and talk and met his developmental milestones on time. He reports when he went off to school, he did not need speech therapy, learning support, emotional support, or special education classes. PSYCHOSOCIAL HISTORY: He reports that his mother and father were together when he was born, but he reports he does not really know how many siblings he has, reporting that he keeps discovering more and more all the time. When asked what that meant, and further probing, he gave the indication that possibly his dad had significant infidelity and that has led to more siblings than he would have known. He reports that his childhood was great, but it started to feel like these were just answers he was given and not how he really felt. He denied any emotional, physical, or sexual abuse, any CYS involvement, ever being placed outside of the home, any histories of trauma. He then went on to say he did not know the highest grade that he made it to, and then after that he started basically digressing and not wanting to answer any more questions Hospital Course Hospital Course He never really acclimated to the individual, group and milieu therapies provided.? It was unclear whether he was malingering or just at a place where he was unable to participate in the process.? In the very beginning he said he did not like how he asked questions and that there was redundancy and that he was leaving but he never would make any movement towards leaving.? He was just that there and sleep get up to eat and be nasty toward people.? Ultimately in the final conversation we discussed his options to participate and engage with the social work team and treatment or discharge.? He was able to contract for safety outside hospital prior to discharge.? But he continued to refuse to engage.? During hospitalization his founder chairman and chief creative officer came over and visited with him and she got no more engagement out of him than we did.? During the hospitalization, patient had routine laboratory studies which were within normal limits except for few outliers.? Additionally there was a general medical evaluation which was also within normal limits and revealed no new acute processes. Discharge Summary: At the time of discharge, he denies ptosis or lethality.? Mood and anxiety were well managed.? Patient was evaluated and deemed to be absent credible lethality, and had achieved the maximum benefit from an inpatient hospitalization given his lack of participation, so he was discharged. Meds [facility] Home Medications Medication Instructions Recorded Confirmed Last Taken Type Unable to Assess 12/13/22 12/13/22 Unknown History Allergies Allergy/AdvReac Type Severity Reaction Status Date / Time No Known Allergies Allergy Verified 10/09/22 16:14 [facility] 2 PFSH: Medical History No pertinent past medical history Surgical History History of mandibular surgery Social History Smoking and tobacco status: current every day smoker Mental Status Exam MSE Comments: This is a slender, white male, in hospital scrubs, with poor grooming, and fleeting eye contact. Poor dentition. Mostly uncooperative with exam in mild distress. Speech was decreased rate productivity and volume. Mood described as okay; his affect was flat. Thought process was disorganized. Thought content: patient denied any suicidal or homicidal ideation, he appeared to be responding to internal stimuli. His attention was impaired. His recent remote memory could not be tested. He was alert and oriented to person but not year or situation. There was evidence of psychomotor slowing. His impulse control is impaired. His insight and judgment are feeble. Vitals/I&O/Wt Last Vital Signs Temp 98.5 F 12/13/22 19:53 Pulse 103 H 12/13/22 19:53 Resp 18 12/14/22 06:32 BP 153/117 12/13/22 19:53 Pulse Ox 100 12/13/22 19:53 O2 Del Method Room Air 12/13/22 19:53 Data NPU 12/13/22 11:05 12/13/22 11:05 A&P Assessment and plan (1) Acute psychosis: (2) Depression: (3) Methamphetamine use disorder, severe: Plan This is a 41-year-old, white male, with a reported history of of addiction and mental health issues, currently on no medications, who presented to the emergency department with psychosis currently on an involuntary hold. RECOMMENDATION AND PLAN: 1. Patient will remain here involuntarily at this time 2. Encourage individual, group, and milieu therapy. 3. Continue q-15 minute checks for safety. 4. Encourage sober living treatment after discharge, at the highest level of care, to which he is willing to commit. 5. Reengage with patient with consideration for medications to target psychosis. Involuntary Hold Information 96 Hour Hold: 96 Hour Involuntary Admission: No Attestations [facility] Medical Necessity Statement*: Inpatient hospitalization is medically necessary and deemed to be the clinically appropriate decision at this time. He will be hospitalized for at least 2 midnights. Is likely length of stay will be 4 to 7 days. Coding Level of Care Code Acute Code for Chg Fwd Diagnoses Acute psychosis F23 Depression F32.A Methamphetamine use disorder, severe F15.20
--- NOTE | 2022-12-13 18:38 | PC.NURSE ---
Patient awake now, but appears to be very confused. He began walking down the hallway to the dayroom during dinner and when this RN asked if he would like something to eat he stated, I don't know. I can't walk. This RN took him to his room along with a tray and a drink. He agreed to eat but seemed to be too drowsy to try and eat. When asked if he knew where he was he stated, I don't know...maybe [place]. But it looks weird. Then when he was asked if he knew why he was here he said he did not remember. This RN checked on the patient shortly thereafter and he was still sitting on the edge of his bed, tray untouched, very confused and drowsy. Patient did look up each time this RN entered the room, but had a very slow response and blank gaze.
[2022-12-14 06:32] VITALS: RESP 18
--- NOTE | 2022-12-14 06:32 | PC.NURSE ---
resp 18 pt sleeping
--- NOTE | 2022-12-14 09:55 | PC.OT ---
OT EVALUATION HELD TODAY; PATIENT SITTING BY DOOR TO S. SIDE DOOR LEADING TO THE LOBBY PICKING AT THE DOOR. NURSING INFORMED.
[2022-12-14 14:00] VITALS: RESP 16
--- NOTE | 2022-12-14 15:45 | PC.NURSE ---
PT IS RESTING. RESPIRATIONS WERE COUNTED AT 16. WILL CONTINUE TO MONITOR PT.
--- NOTE | 2022-12-14 16:42 | W.PM.NPUPNS ---
Subjective [facility] Subjective: This is a 42-year-old white male with acute psychosis in the presence of significant methamphetamine use. Patient continued to appear confused as he had spent a significant part of the day attempting to leave the unit. He had camped himself out next to the doorway for a significant amount of time and he had apparently taken a screw that he had somehow found and had either swallowed it or hit it. He was placed on one-to-one observation with the patient continued to show evidence of bizarre behavior as he appeared at times to be communicating with someone that was not there. The patient had been avoiding food but had been consuming water on the unit. Mental Status Exam MSE Comments: Patient was seen in the presence of a one-on-one sitter. He was hiding underneath his blankets. His room was malodorous his hygiene was poor. He had fleeting eye contact. He was lying in bed with no productive speech noted today. He did not describe his mood. His affect appeared odd. There was no evidence of any abnormal involuntary motor movements tics or tremors. He did at times appear to be responding to internal stimuli. There was some evidence of clear paranoia as he had appeared to be refusing food. His speech was limited as he was essentially nonverbal. His insight is impaired. His judgment is poor. His impulse control appeared impaired as well. Vitals/I&O/Wt Last Vital Signs Temp 98.5 F 12/13/22 19:53 Pulse 103 H 12/13/22 19:53 Resp 16 12/14/22 14:00 BP 153/117 12/13/22 19:53 Pulse Ox 100 12/13/22 19:53 O2 Del Method Room Air 12/13/22 19:53 Data [facility] 12/13/22 11:05 12/13/22 11:05 A&P Assessment and plan (1) Acute psychosis: (2) Depression: (3) Methamphetamine use disorder, severe: Plan This is a 41-year-old, white male, with a reported history of of addiction and mental health issues, currently on no medications, who presented to the emergency department with psychosis currently on an involuntary hold. RECOMMENDATION AND PLAN: 1. Patient will remain here involuntarily at this time, he will likely need an extended stay here with possible forced medications if there is no improvement. 2. Encourage individual, group, and milieu therapy. 3. Continue q-15 minute checks for safety. 4. Encourage sober living treatment after discharge, at the highest level of care, to which he is willing to commit. 5. Reengage with patient with consideration for medications to target psychosis. Involuntary Hold Information 96 Hour Hold: 96 Hour Involuntary Admission: No Attestations [facility] Medical Necessity Statement*: Inpatient hospitalization is medically necessary and deemed to be the clinically appropriate decision at this time. His likely length of stay will be 4 to 7 days. Coding Level of Care Code Acute Code for g Fwd Diagnoses Acute psychosis F23 Depression F32.A Methamphetamine use disorder, severe F15.20
--- NOTE | 2022-12-14 17:05 | PC.NURSE ---
one on one documentation being preformed on paper charting. q 15minutes
[2022-12-14 20:04] VITALS: BP 108/73; PULSE 85; RESP 18; TEMP 36.8; O2SAT 96
[2022-12-15 06:00] VITALS: RESP 18
--- NOTE | 2022-12-15 06:24 | PC.NURSE ---
resp 18 pt sleeping
--- NOTE | 2022-12-15 10:22 | XRR_ITS ---
PROCEDURE INFORMATION: Exam: XR Abdomen Exam date and time: 12/15/2022 10:52 AM Age: 42 years old Clinical indication: Screening exam; Other: Foreign body; Patient HX: Swallowed a screw yest TECHNIQUE: Imaging protocol: Radiologic exam of the abdomen. Views: Frontal supine view of the abdomen. 1 View. COMPARISON: CT chest abd pel w con* 02/13/2021 4:32 AM FINDINGS: Gastrointestinal tract: No abnormally dilated air-filled bowel loops identified. Bones/joints: Posterior spinal fixation hardware noted. Soft tissues: Partially visualized possible foreign body noted in the region of the lower pelvis/rectum. XR/XR KUB portable [id number] IMPRESSION: Partially visualized possible foreign body noted in the region of the lower pelvis/rectum. Recommend additional views including the entirety of the lower pelvis/rectal region.
--- NOTE | 2022-12-15 11:57 | PC.NURSE ---
Radiology here for a KUB on patient. At first refused, then agreed to Xray. After xray, patient out of bed, demanded to leave, threw water across the room towards nurse. Explained that patient is on a 96 hr hold and he continued yelling about nurses in ER stabbing him with medication then he woke up here. Offered patient both oral or injectable medication for relaxation/agitation. Patient refused stating get the fuck out of my room. Where is the fucking Dr and get me out of here. A code 10 was called at 1108 as patient came out of his room and was threatening to staff and raising his voice. Injectable medication pulled up and Dr Banks stated to give the medication. Patient again refused, but agreed to go to his room and calm himself down. Patient was then in the dayroom coloring. Patient spoke in a calm voice and denied needing anything
--- NOTE | 2022-12-15 12:48 | W.PM.NPUDCS ---
Diagnoses at Discharge Discharge Diagnosis (1) Acute psychosis: Status: Acute (2) Depression: Status: Acute (3) Methamphetamine use disorder, severe: Status: Acute Reason for Visit Reason for Visit: PSYCH EVAL Brief History: History of Present Illness Chandler Frederick is a 42 year old male with an extended history of methamphetamine abuse who presented to the emergency department by the police with disorganized thinking and complaints of auditory hallucinations.? He had reported that he had felt like people were playing pranks on him and were trying to harm him.? He had admitted to using methamphetamine and was brought onto the neuropsychiatric unit for further evaluation and treatment.? The patient was excessively tired and was unable to answer any further questions on interview today. Psychiatric history: History of reported inpatient treatments both at the [facility] and other facilities were reported. Current medications: None Medical history no pertinent medical history reported, Surgical history: Reported history of jaw surgery Allergies: No known drug allergies Drug and alcohol history: History of reported methamphetamine use along with marijuana use as well.? There have been no reported history of inpatient or outpatient rehabilitation. Family psychiatric history: Unknown Social history: Limited, previous reports had stated that he had been homeless in the past few days. Excerpt from 12/26/21 Admission at [facility] is provided Below History of Present Illness Chandler Frederick is a 41 year old male Chief Complaint: Psychiatric Symptoms Stated Complaint: depressed Time Seen by Provider: 12/25/21 02:45 Source: patient Mode of arrival: ambulatory Limitations: no limitations History of Present Illness:?? 41-year-old male history of depression and homelessness he states that he is just been increasing depressed and does not want to do.? He denies any suicidal plan but states that he just feels like he no longer wants to live anymore.? He voluntarily wants to be admitted to the [facility] to get help.? Denies any other previous admissions he is not on any current medicines. Associated symptoms: Reports depression He was admitted to the neuropsychiatric unit for definitive treatment of those issues. He presents today reporting that he may have been in a psychiatric facility as a child but denies any times as an adult. He reports that he has not had outpatient services and that he has not been on psychiatric medications except maybe when he was a kid. He was very resistant to the interview and was upset at varying degrees throughout the interview, mostly expressing being upset about being asked the same question by different people. He did report smoking about a pack of cigarettes a day. He reports drinking alcohol sometimes. He reports using marijuana as well as methamphetamines. He reports he has never been to rehab but has had DUI?s/drug and alcohol related charges. He reports that symptoms started back when he was a kid, he says ?I don?t know, maybe 9 to 10 years old?. When asked what exactly was going on, he said he was just a mean little kid. Many questions were then answered with ?I don?t know? frequently. He dd report that he has had suicidal thoughts in his life intermittently. He denies ever having a suicide attempt. He denies self-injurious behavior. He reports that he does have depression at times and that he was feeling depressed last night, felt tired. 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 He denies significant anxiety, denied issues related to psychosis, denying paranoia or hearing voices. He denied symptoms consistent with trauma, denying nightmares, flashbacks, hypervigilance, etc. and denied that he was interested in any medications or major interventions. PSYCHIATRIC HISTORY: As above. SUBSTANCE ABUSE HISTORY: As above. FAMILY HISTORY: He denies any family history of mental health or addiction issues, however we were fairly competent that we have evidence to the contrary based on family members and hospitalizations even at this facility. He denies any suicide attempts or completions in the family. DEVELOPMENTAL HISTORY: He denies any issues when he was born. He reports that he believes he learned to walk and talk and met his developmental milestones on time. He reports when he went off to school, he did not need speech therapy, learning support, emotional support, or special education classes. PSYCHOSOCIAL HISTORY: He reports that his mother and father were together when he was born, but he reports he does not really know how many siblings he has, reporting that he keeps discovering more and more all the time. When asked what that meant, and further probing, he gave the indication that possibly his dad had significant infidelity and that has led to more siblings than he would have known. He reports that his childhood was great, but it started to feel like these were just answers he was given and not how he really felt. He denied any emotional, physical, or sexual abuse, any CYS involvement, ever being placed outside of the home, any histories of trauma. He then went on to say he did not know the highest grade that he made it to, and then after that he started basically digressing and not wanting to answer any more questions Hospital Course Hospital Course He never really acclimated to the individual, group and milieu therapies provided.? It was unclear whether he was malingering or just at a place where he was unable to participate in the process.? In the very beginning he said he did not like how he asked questions and that there was redundancy and that he was leaving but he never would make any movement towards leaving.? He was just that there and sleep get up to eat and be nasty toward people.? Ultimately in the final conversation we discussed his options to participate and engage with the social work team and treatment or discharge.? He was able to contract for safety outside hospital prior to discharge.? But he continued to refuse to engage.? During hospitalization his state patrol officer came over and visited with him and she got no more engagement out of him than we did.? During the hospitalization, patient had routine laboratory studies which were within normal limits except for few outliers.? Additionally there was a general medical evaluation which was also within normal limits and revealed no new acute processes. Discharge Summary: At the time of discharge, he denies ptosis or lethality.? Mood and anxiety were well managed.? Patient was evaluated and deemed to be absent credible lethality, and had achieved the maximum benefit from an inpatient hospitalization given his lack of participation, so he was discharged. Hospital Course Hospital Course Patient was initially on the unit had appeared isolative and had made repeated attempts to leave the unit. He stated that he was upset that he was here. He had been frustrated and apparently had swallowed a screw on 12/14/2022. He had been unwilling to allow an x-ray of his abdomen but eventually he had relented which did show that the screw was near his rectum and was likely to be exiting soon. He had reported no thoughts of hurting himself or others at the time of discharge. He had been unwilling to consider treatment. He struggled with acclimating to individual group or milieu therapies that were provided. He had stated that he was simply getting rest here and he continued to be somewhat abusive to staff members verbally. Ultimately it was decided that the patient would be unwilling and uninterested in participating or engaging with the treatment team in any fashion although he was able to contract for safety outside of the hospital. A general medical evaluation was completed which did appear to be within normal limits and revealed no acute processes. Involuntary Hold Information 96 Hour Hold: 96 Hour Involuntary Admission: No Mental Status Exam MSE Comments: He is a thin white male who appeared his stated age with fair eye contact. His speech was normal in regards to rate rhythm and prosody. His mood was described as okay. His affect appeared irritable. There was no evidence of any abnormal involuntary motor movements tics or tremors. He did not appear to be responding to internal stimuli. There was no evidence of any delusional thinking. His insight is limited. His judgment is adequate. His impulse control appeared fair on discharge. His recent and remote memory appear grossly intact. He was alert and oriented person place and time. Discharge Data Studies Completed and Pending: Completed Studies During Hospitalization Category Date Time Status XR KUB portable [id number] Routine Exams 12/15/22 10:22 Completed Pending at discharge Category Date Time Status Drug Screen, Urin e Stat Lab 12/13/22 10:15 Uncollected Radiology Impressions KUB X-Ray 12/15/22 10:22 IMPRESSION: Partially visualized possible foreign body noted in the region of the lower pelvis/rectum. Recommend additional views including the entirety of the lower pelvis/rectal region. Laboratory Results WBC 9.8 10^3/uL (4.0- 10.0) 12/13/22 11:05 RBC 5.08 10^6/uL (4.1 -5.3) 12/13/22 11:05 Hgb 15.0 g/dL (11.7-1 6.6) 12/13/22 11:05 Hct 45.9 % (42.0-52.0 ) 12/13/22 11:05 MCV 90.4 fl (80-94) 12/13/22 11:05 MCH 29.5 pg (28.0-34. 0) 12/13/22 11:05 MCHC 32.7 g/dL (30.0-3 6.0) 12/13/22 11:05 RDW 13.9 % (12.1-15.1 ) 12/13/22 11:05 Plt Count 281 10^3/cmm (130 -400) 12/13/22 11:05 MPV 9.2 fL (7.4-10.4) 12/13/22 11:05 Neut % (Auto) 59.9 % 12/13/22 11:05 Lymph % (Auto) 27.8 % 12/13/22 11:05 [place] % (Auto) 10.1 % 12/13/22 11:05 Eos % (Auto) 1.1 % 12/13/22 11:05 Baso % (Auto) 0.9 % 12/13/22 11:05 Neut # (Auto) 5.85 10^3/uL (1.8 -7.7) 12/13/22 11:05 Lymph # (Auto) 2.7 10^3/uL (0.8- 4.8) 12/13/22 11:05 [place] # (Auto) 1.0 10^3/uL (0.2- 0.9) H 12/13/22 11:05 Eos # (Auto) 0.1 10^3/uL (0.0- 0.8) 12/13/22 11:05 Baso # (Auto) 0.1 10^3/uL (0.0- 0.1) 12/13/22 11:05 Nucleated RBC % (a uto) 0 % 12/13/22 11:05 Nucleated RBCs # 0.0 /100WBC 12/13/22 11:05 Sodium 138 mmol/L (136-1 45) 12/13/22 11:05 Potassium 3.0 mmol/L (3.5-5 .1) L 12/13/22 11:05 Chloride 99 mmol/L (98-107 ) 12/13/22 11:05 Carbon Dioxide 22 mmol/L (22-29) 12/13/22 11:05 Anion Gap 20.0 (5-19) H 12/13/22 11:05 BUN 14 mg/dL (6-20) 12/13/22 11:05 Creatinine 0.9 mg/dL (0.7-1. 2) 12/13/22 11:05 GFR Calculation 92.1 mL/min (90-1 30) 12/13/22 11:05 Glucose 136 mg/dL (65-115 ) H 12/13/22 11:05 Calculated Osmolal ity 289 mOsm/kg (285- 295) 12/13/22 11:05 Calcium 9.2 mg/dL (8.5-10 .5) 12/13/22 11:05 Total Bilirubin 1.0 mg/dL (0.15-1 .2) 12/13/22 11:05 AST 19 U/L (0-40) 12/13/22 11:05 ALT 11 U/L (0-41) 12/13/22 11:05 Alkaline Phosphata se 95 U/L (40-130) 12/13/22 11:05 Total Protein 7.7 g/dL (6.6-8.7 ) 12/13/22 11:05 Albumin 4.8 g/dL (3.5-5.2 ) 12/13/22 11:05 Globulin 2.9 g/dL (1.3-4.6 ) 12/13/22 11:05 Salicylates < 0.3 mg/dL (3-10 ) L 12/13/22 11:05 Acetaminophen < 5.0 ug/mL (10-3 0) L 12/13/22 11:05 Ethyl Alcohol < 10 mg/dL (0-10) 12/13/22 11:05 Vitals: Last Vital Signs Temp 98.3 F 12/14/22 20:04 Pulse 85 12/14/22 20:04 Resp 18 12/15/22 06:00 BP 108/73 12/14/22 20:04 Pulse Ox 96 12/14/22 20:04 O2 Del Method Room Air 12/14/22 20:04 Discharge Plan Discharge Patient Disposition: Home Condition: Stable Prescriptions: No Action Unable to Assess Discharge Orders: Discharge Order (Routine); Ordered 12/15/22 Ordered By: Efren Banks Referrals: [facility] [place] [facility] [Outside] - 7-10 days (Walk-in for services Wednesday thru Wednesday 7:30am to 3pm.) Discharge Diet: Usual diet Discharge Activity: Resume usual activity Patient Instructions: Opioid Safety Discharge Attestations [facility] Time Spent in Discharge Care*: less than 30 min Coding Level of Care Code Acute Chg FW DC note Diagnoses Acute psychosis F23 Depression F32.A Methamphetamine use disorder, severe F15.20
[2022-12-15 13:07] VITALS: RESP 18
== END 2022-12-15 13:30 | disposition home or self-care (01) | DRG 885 ==
LOC: ER 10:48 → NP 11:21
PROVIDERS: Admitting Provider Psychiatry & Neurology Psychiatry; Emergency Provider Emergency Medicine; Visit Provider Psychiatry & Neurology Psychiatry
DX: F23 Brief psychotic disorder (principal); F15.20 Other stimulant dependence, uncomplicated; F15.251 Other stimulant dependence with stimulant-induced psychotic disorder with hallucinations; F32.A Depression, unspecified; F12.90 Cannabis use, unspecified, uncomplicated; Z59.01 Sheltered homelessness; F17.210 Nicotine dependence, cigarettes, uncomplicated; F10.10 Alcohol abuse, uncomplicated
CPT/HCPCS: 36415; 74018; 80053; 80307; 85025; 96372; 97165; 99238; 99285; J3490

== ENCOUNTER 2024-08-04 09:48 | Outpatient (CLI) | payer OTHER, SELFPAY ==
--- NOTE | 2024-08-04 09:56 | XR_ITS ---
WS: [id number] LUMBAR SPINE TECHNIQUE: 3 views of the lumbar spine CLINICAL INFORMATION: DISABILITY DETERMINATION FINDINGS: Prior postoperative changes pedicle screw fixation T11-L4 with interconnecting rods. Hardware appears intact. Chronic compression fracture L2 with loss of approximately 40% vertebral body height. Mild d isc space narrowing in the lower thoracic spine. Mild compression superior endplate L1 likely chronic . Facet arthropathy L5-S1. XR/XR lumbar spine 2-3V* [id number] IMPRESSION: 1. Chronic compression fracture L2. 2. Mild chronic appearing compression superior endplate L1 3. Prior postoperative changes pedicle screw fixation T11-L4 with interconnect ing rods. Hardware appears intact. 4. Moderate facet arthropathy L5-S1.
== END 2024-08-04 09:49 | disposition home or self-care (01) ==
LOC: RAD 09:53
PROVIDERS: Visit Provider Family Medicine
DX: Z02.71 Encounter for disability determination (principal); Z98.890 Other specified postprocedural states; S32.020A Wedge compression fracture of second lumbar vertebra, initial encounter for closed fracture; X58.XXXA Exposure to other specified factors, initial encounter; M47.896 Other spondylosis, lumbar region; M47.898 Other spondylosis, sacral and sacrococcygeal region
CPT/HCPCS: 72100